=== PATIENT | male | born 1950 | race Two or more races ===

== ENCOUNTER 2025-02-24 23:37 | Inpatient (IN) | payer MEDICARE, OTHER ==
[~2025-02-24] VITALS: Ht 172.7 cm; Wt 73.5 kg
[2025-02-25] VITALS (7 sets, daily range): BP systolic 130–144; BP diastolic 61–76; TEMP 97.5–98.1; O2SAT 99–100
[2025-02-25 00:29] LABS: CARBON DIOXIDE 16 mmol/L (21-32); CHLORIDE 105 mmol/L (98-107); CREATININE 5.1 mg/dL (0.6-1.3); GLUCOSE 93 mg/dL (74-106); SODIUM SERUM 131 mmol/L (136-145); UREA NITROGEN, BLOOD 56 mg/dL (7-18)
[2025-02-25 00:30] LABS: BASOPHILS % (AUTO) 0.6 % (0.0-2.0); EOSINOPHILS # (AUTO) 0.1 K/uL (0.0-0.7); EOSINOPHILS % (AUTO) 0.8 % (0.0-6.0); HEMATOCRIT 24 % (39-51); HEMOGLOBIN 7.7 g/dL (13.5-17.5); LYMPHOCYTES # (AUTO) 1.2 K/uL (0.8-4.8); LYMPHOCYTES % (AUTO) 19.4 % (20.0-44.0); MEAN CORPUSCULAR HEMOGLOBIN 31 PG (26.0-33.0); MEAN CORPUSCULAR HGB CONC 32 g/dl (31.0-36.0); MEAN CORPUSCULAR VOLUME 99 fL (80-96); MONOCYTES # (AUTO) 0.6 K/uL (0.1-1.30); NEUTROPHILS # (AUTO) 4.5 K/uL (1.8-8.9); NEUTROPHILS % (AUTO) 70.2 % (43.0-81.0); PLATELET COUNT (AUTO) 242 K/uL (150-450); RED BLOOD CELL COUNT(AUTO) 2.46 MIL/uL (4.5-6.0); RED CELL DISTRIBUTION WIDTH 20.2 % (11.5-15.0); WHITE BLOOD COUNT (AUTO) 6.3 K/uL (4.3-11.0)
[2025-02-25 00:33] LABS: CALCIUM, SERUM 5.7 mg/dL (8.5-10.1); POTASSIUM 7.2 mmol/L (3.5-5.1)
[2025-02-25 00:35] LABS: APPEARANCE,URINE CLOUDY (CLEAR)
[2025-02-25 00:36] LABS: COLOR,URINE RED (YELLOW)
[2025-02-25 00:43] LABS: ALANINE AMINOTRANSFERASE 6 U/L (12-78); ALBUMIN 2.6 g/dL (3.4-5.0); ALKALINE PHOSPHATASE 321 U/L (46-116); ASPARTATE AMINOTRANSFERASE 28 U/L (15-37); BILIRUBIN,DIRECT 0.2 mg/dL (0.0-0.2); BILIRUBIN,TOTAL 0.5 mg/dL (0.2-1.0); NT-PRO BNP 10344 pg/mL (0-125); TOTAL PROTEIN, SERUM 6.5 g/dL (6.4-8.2)
[2025-02-25] MEDS ORDERED: DEXTROSE 50%-WATER 50 ML DISP.SYRIN ONE (00:49)
[2025-02-25] MEDS ORDERED: SODIUM POLYSTYRENE SULFONATE 15 G/60 ML BOTTLE ONE (00:49)
[2025-02-25] MEDS ORDERED: INSULIN REGULAR, HUMAN 100 UNIT/ML 10 ML VIAL ONE (00:49)
[2025-02-25] MEDS ORDERED: CALCIUM CHLORIDE 1,000 MG/10 ML DISP.SYRIN ONE (00:49)
[2025-02-25] MEDS ORDERED: SODIUM BICARBONATE SYR 50 MEQ/50 ML DISP.SYRIN ONE ×2 (00:49→00:59)
[2025-02-25 00:58] LABS: RBC,URINE TOO NUMEROUS TO COUN /HPF (0-2)
[2025-02-25] MEDS: ALBUTEROL FS 2.5 MG/3 ML VIAL.NEB NEB ONE (00:58)
[2025-02-25 01:00] LABS: SQUAMOUS EPITHELIAL CELL,UR Moderate /HPF (None Seen)
[2025-02-25 01:01] LABS: INR 1.12 (0.91-1.10); PARTIAL THROMBOPLASTIN TIME 35.9 SEC (24.3-34.3); PROTHROMBIN TIME 11.8 SECS (9.2-11.1)
[2025-02-25 01:03] LABS: BACTERIA,URINE Few /HPF (None Seen)
[2025-02-25] MEDS ORDERED: ALBUTEROL FS 2.5 MG/3 ML VIAL.NEB ONE (01:09)
[2025-02-25] MEDS: CALCIUM CHLORIDE 1,000 MG/10 ML DISP.SYRIN IV ONE (01:21)
[2025-02-25] MEDS: DEXTROSE 50%-WATER 50 ML DISP.SYRIN IV ONE (01:21)
[2025-02-25] MEDS: IV NS 0.9% 1,000 ML BAG IV ONE (01:23)
[2025-02-25] MEDS: SODIUM BICARBONATE SYR 100 MEQ in IV D5W 1,000 ML IV ONE (01:23)
[2025-02-25] MEDS: INSULIN REGULAR, HUMAN 100 UNIT/ML 10 ML VIAL IV ONE (01:23)
[2025-02-25] MEDS: SODIUM POLYSTYRENE SULFONATE 15 G/60 ML BOTTLE PO ONE (01:24)
[2025-02-25] MEDS ORDERED: Z GUARD REMEDY 4 OZ OINT TP PRN (03:00)
[2025-02-25] MEDS ORDERED: ONDANSETRON HCL/PF 4 MG/2 ML VIAL IVP PRN (03:00)
[2025-02-25] MEDS ORDERED: ACETAMINOPHEN 325 MG TABLET ONE (03:20)
[2025-02-25] MEDS: ACETAMINOPHEN 325 MG TABLET PO PRN (03:23)
[2025-02-25] MEDS: HYDROCODONE/APAP 5/325MG TABLET PO PRN (05:36)
[2025-02-25] MEDS: PANTOPRAZOLE 40 MG TABLET.DR PO SCH (07:59)
[2025-02-25] MEDS ORDERED: PANT40TA2 PO (08:28)
[2025-02-25] MEDS ORDERED: CRAN400C PO (08:28)
[2025-02-25] MEDS ORDERED: LACT1TAB13 PO (08:28)
[2025-02-25] MEDS ORDERED: ASCO-352 PO (08:28)
[2025-02-25] MEDS ORDERED: ACET-868 PO (08:28)
[2025-02-25] MEDS ORDERED: GABA300C PO (08:28)
[2025-02-25] MEDS ORDERED: SENN8.6T19 PO (08:28)
[2025-02-25] MEDS ORDERED: POLY17PO4 PO (08:28)
[2025-02-25] MEDS ORDERED: ONDA-97 PO (08:28)
[2025-02-25] MEDS ORDERED: MIDO10TA PO (08:28)
[2025-02-25] MEDS ORDERED: ATOR20TA PO (08:28)
[2025-02-25] MEDS ORDERED: BICA50TA49 PO (08:28)
[2025-02-25] MEDS ORDERED: LEVO150T8 PO (08:28)
[2025-02-25] MEDS ORDERED: DICL100G26 TP (08:28)
[2025-02-25] MEDS ORDERED: DARO300T PO (08:28)
[2025-02-25] MEDS ORDERED: FOLI0.4T6 PO (08:28)
[2025-02-25] MEDS ORDERED: HYDR-4303 PO (08:28)
[2025-02-25] MEDS ORDERED: FERR325T28 PO (08:28)
[2025-02-25] MEDS ORDERED: MULT-447 PO (08:28)
[2025-02-25] MEDS ORDERED: AMINO ACID PO (08:28)
[2025-02-25] MEDS ORDERED: METH-649 PO (08:28)
[2025-02-25] MEDS ORDERED: MELA5TAB PO (08:28)
[2025-02-25] MEDS ORDERED: LIDO30AD10 TP (08:28)
[2025-02-25] MEDS: FUROSEMIDE 40 MG/4 ML VIAL IV SCH (08:29)
[2025-02-25] MEDS: Sodium Bicarbonate 100 MEQ in IV 1/2NS 1000 ML 1,000 ML IV SCH (11:41)
[2025-02-25 11:58] LABS: APPEARANCE,URINE TURBID (CLEAR); COLOR,URINE RED (YELLOW)
[2025-02-25 11:59] LABS: BACTERIA,URINE Rare /HPF (None Seen); RBC,URINE TOO NUMEROUS TO COUN /HPF (0-2); SQUAMOUS EPITHELIAL CELL,UR None Seen /HPF (None Seen); WBC,URINE 0-2 /HPF (0-3)
[2025-02-25 12:09] LABS: CREATININE, URINE < 13.0 MG/DL (30.0-125.0); URINE SODIUM, RANDOM 84 mmol/l (40-220); URINE TOTAL PROTEIN 592.4 mg/dL (0-11.9)
[2025-02-25 12:54] LABS: BASOPHILS % (AUTO) 0.7 % (0.0-2.0); EOSINOPHILS % (AUTO) 0.4 % (0.0-6.0); HEMATOCRIT 22 % (39-51); HEMOGLOBIN 7.4 g/dL (13.5-17.5); LYMPHOCYTES # (AUTO) 0.7 K/uL (0.8-4.8); LYMPHOCYTES % (AUTO) 11.7 % (20.0-44.0); MEAN CORPUSCULAR HEMOGLOBIN 32 PG (26.0-33.0); MEAN CORPUSCULAR HGB CONC 33 g/dl (31.0-36.0); MEAN CORPUSCULAR VOLUME 97 fL (80-96); MONOCYTES # (AUTO) 0.4 K/uL (0.1-1.30); MONOCYTES % (AUTO) 6.9 % (2.0-12.0); NEUTROPHILS # (AUTO) 5.1 K/uL (1.8-8.9); NEUTROPHILS % (AUTO) 80.3 % (43.0-81.0); PLATELET COUNT (AUTO) 240 K/uL (150-450); RED BLOOD CELL COUNT(AUTO) 2.31 MIL/uL (4.5-6.0); RED CELL DISTRIBUTION WIDTH 20.2 % (11.5-15.0); WHITE BLOOD COUNT (AUTO) 6.3 K/uL (4.3-11.0)
[2025-02-25 13:12] LABS: ALBUMIN 2.5 g/dL (3.4-5.0); BILIRUBIN,TOTAL 0.5 mg/dL (0.2-1.0); CREATININE 5.4 mg/dL (0.6-1.3); MAGNESIUM 1.5 mg/dL (1.8-2.4); PHOSPHORUS 5.6 mg/dL (2.5-4.9); TOTAL PROTEIN, SERUM 6.2 g/dL (6.4-8.2)
[2025-02-25 13:34] LABS: CALCIUM, SERUM 5.9 mg/dL (8.5-10.1); POTASSIUM 6.3 mmol/L (3.5-5.1)
[2025-02-25 13:35] LABS: EOSINOPHIL,URINE Rare
[2025-02-25] MEDS: MORPHINE SULFATE INJ 2 MG/ML DISP.SYRIN IV PRN (15:18)
[2025-02-26] VITALS: BP 122/67; TEMP 98.2; O2SAT 95
[2025-02-26 04:00] VITALS: BP 146/59; TEMP 97.9; O2SAT 100
[2025-02-26 07:07] LABS: BASOPHILS # (AUTO) 0.1 K/uL (0.0-0.2); BASOPHILS % (AUTO) 1.1 % (0.0-2.0); EOSINOPHILS # (AUTO) 0.1 K/uL (0.0-0.7); EOSINOPHILS % (AUTO) 1.5 % (0.0-6.0); HEMATOCRIT 21 % (39-51); HEMOGLOBIN 7.1 g/dL (13.5-17.5); LYMPHOCYTES # (AUTO) 1.1 K/uL (0.8-4.8); LYMPHOCYTES % (AUTO) 18.2 % (20.0-44.0); MEAN CORPUSCULAR HEMOGLOBIN 32 PG (26.0-33.0); MEAN CORPUSCULAR HGB CONC 33 g/dl (31.0-36.0); MEAN CORPUSCULAR VOLUME 97 fL (80-96); MONOCYTES # (AUTO) 0.5 K/uL (0.1-1.30); NEUTROPHILS # (AUTO) 4.1 K/uL (1.8-8.9); NEUTROPHILS % (AUTO) 70.2 % (43.0-81.0); PLATELET COUNT (AUTO) 220 K/uL (150-450); RED BLOOD CELL COUNT(AUTO) 2.19 MIL/uL (4.5-6.0); RED CELL DISTRIBUTION WIDTH 20.2 % (11.5-15.0); WHITE BLOOD COUNT (AUTO) 5.8 K/uL (4.3-11.0)
[2025-02-26 07:28] LABS: ALBUMIN 2.4 g/dL (3.4-5.0); BILIRUBIN,TOTAL 0.5 mg/dL (0.2-1.0); CALCIUM, SERUM 6.4 mg/dL (8.5-10.1); MAGNESIUM 1.6 mg/dL (1.8-2.4); PHOSPHORUS 4.1 mg/dL (2.5-4.9); POTASSIUM 4.9 mmol/L (3.5-5.1); TOTAL PROTEIN, SERUM 6.1 g/dL (6.4-8.2)
[2025-02-26 08:00] VITALS: BP 149/70; TEMP 97.9; O2SAT 100
[2025-02-26] MEDS: MAGNESIUM OXIDE 400 MG TABLET PO ONE (10:57)
[2025-02-26 12:00] VITALS: BP 139/69; TEMP 97.9; O2SAT 100
[2025-02-26 16:00] VITALS: BP 144/60; TEMP 98.1; O2SAT 100
[2025-02-26 20:00] VITALS: BP 121/52; TEMP 98.6; O2SAT 100
[2025-02-27] VITALS (7 sets, daily range): BP systolic 127–158; BP diastolic 60–72; TEMP 98.1–99.1; O2SAT 98–100
[2025-02-27 06:53] LABS: BASOPHILS # (AUTO) 0.1 K/uL (0.0-0.2); BASOPHILS % (AUTO) 0.8 % (0.0-2.0); EOSINOPHILS # (AUTO) 0.1 K/uL (0.0-0.7); EOSINOPHILS % (AUTO) 1.8 % (0.0-6.0); HEMATOCRIT 23 % (39-51); HEMOGLOBIN 7.7 g/dL (13.5-17.5); LYMPHOCYTES # (AUTO) 1.5 K/uL (0.8-4.8); LYMPHOCYTES % (AUTO) 22.7 % (20.0-44.0); MEAN CORPUSCULAR HEMOGLOBIN 33 PG (26.0-33.0); MEAN CORPUSCULAR HGB CONC 34 g/dl (31.0-36.0); MEAN CORPUSCULAR VOLUME 98 fL (80-96); MONOCYTES # (AUTO) 0.8 K/uL (0.1-1.30); MONOCYTES % (AUTO) 11.9 % (2.0-12.0); NEUTROPHILS # (AUTO) 4.2 K/uL (1.8-8.9); NEUTROPHILS % (AUTO) 62.8 % (43.0-81.0); PLATELET COUNT (AUTO) 209 K/uL (150-450); RED BLOOD CELL COUNT(AUTO) 2.37 MIL/uL (4.5-6.0); RED CELL DISTRIBUTION WIDTH 19.9 % (11.5-15.0); WHITE BLOOD COUNT (AUTO) 6.7 K/uL (4.3-11.0)
[2025-02-27 07:14] LABS: ALBUMIN 2.6 g/dL (3.4-5.0); BILIRUBIN,TOTAL 0.6 mg/dL (0.2-1.0); CALCIUM, SERUM 6.6 mg/dL (8.5-10.1); CREATININE 3.7 mg/dL (0.6-1.3); MAGNESIUM 1.7 mg/dL (1.8-2.4); PHOSPHORUS 3.6 mg/dL (2.5-4.9); POTASSIUM 4.9 mmol/L (3.5-5.1); TOTAL PROTEIN, SERUM 6.5 g/dL (6.4-8.2)
[2025-02-27] MEDS ORDERED: DAROLUTAMIDE 600 MG PO SCH (11:30)
[2025-02-27] MEDS: MIDODRINE HCL (5MG) 5 MG TABLET PO SCH (12:01)
[2025-02-27] MEDS: FERROUS SULFATE (325 MG) 325 MG/TAB TABLET PO SCH (12:05)
[2025-02-27] MEDS: BICALUTAMIDE 50 MG TABLET PO SCH (12:05)
[2025-02-27] MEDS: LACTOBACILLUS RHAMNOSUS GG 1 EACH CAP.SPRINK PO SCH (12:05)
[2025-02-27] MEDS: GABAPENTIN 300 MG CAPSULE PO SCH (12:05)
[2025-02-27] MEDS: Magnesium 1GM/D5W 100ML PREMIX 100 ML IV SCH (12:05)
[2025-02-27] MEDS: PANTOPRAZOLE 40 MG TABLET.DR PO SCH (12:05)
[2025-02-27] MEDS: LIDOCAINE 5% (PATCH) 1 EA PATCH TP SCH (12:05)
[2025-02-27] MEDS: FOLIC ACID 1 MG TABLET PO SCH (12:05)
[2025-02-27] MEDS: MULTIVIT W/MINERALS 1 TAB TABLET PO SCH (12:05)
[2025-02-27] MEDS: LEVOTHYROXINE SODIUM 75 MCG TABLET PO SCH (12:05)
[2025-02-27 18:50] LABS: HEMOGLOBIN 7.2 g/dL (13.5-17.5)
[2025-02-27] MEDS: ATORVASTATIN 10 MG TABLET PO SCH (21:43)
[2025-02-28] VITALS (11 sets, daily range): BP systolic 131–166; BP diastolic 56–69; TEMP 97.3–99.9; O2SAT 95–100
[2025-02-28] MEDS: ASCORBIC ACID 500 MG TABLET PO SCH (08:09)
[2025-02-28 11:54] LABS: BASOPHILS % (AUTO) 0.5 % (0.0-2.0); EOSINOPHILS % (AUTO) 0.5 % (0.0-6.0); LYMPHOCYTES # (AUTO) 1.1 K/uL (0.8-4.8); LYMPHOCYTES % (AUTO) 12.8 % (20.0-44.0); MEAN CORPUSCULAR HEMOGLOBIN 32 PG (26.0-33.0); MEAN CORPUSCULAR HGB CONC 34 g/dl (31.0-36.0); MEAN CORPUSCULAR VOLUME 97 fL (80-96); MONOCYTES # (AUTO) 0.9 K/uL (0.1-1.30); MONOCYTES % (AUTO) 10.5 % (2.0-12.0); NEUTROPHILS # (AUTO) 6.7 K/uL (1.8-8.9); NEUTROPHILS % (AUTO) 75.7 % (43.0-81.0); PLATELET COUNT (AUTO) 189 K/uL (150-450); RED BLOOD CELL COUNT(AUTO) 2.11 MIL/uL (4.5-6.0); RED CELL DISTRIBUTION WIDTH 20.1 % (11.5-15.0); WHITE BLOOD COUNT (AUTO) 8.9 K/uL (4.3-11.0)
[2025-02-28 11:59] LABS: HEMATOCRIT 20 % (39-51)
[2025-02-28 12:03] LABS: HEMOGLOBIN 6.8 g/dL (13.5-17.5)
[2025-02-28 12:06] LABS: *SPE A/G RATIO 0.9 (0.7-1.7); *SPE ALBUMIN 2.6 g/dL (2.9-4.4); *SPE ALPHA-1-GLOBULIN 0.4 g/dL (0.0-0.4); *SPE ALPHA-2-GLOBULIN 0.7 g/dL (0.4-1.0); *SPE BETA GLOBULIN 0.9 g/dL (0.7-1.3); *SPE GLOBULIN, TOTAL 2.8 g/dL (2.2-3.9); *SPE M-SPIKE Not Observed g/dL (Not Observed); *SPE PROTEIN TOTAL 5.4 g/dL (6.0-8.5); *SPEGAMMA GLOBULIN 0.9 g/dL (0.4-1.8)
[2025-02-28 12:07] LABS: CALCIUM, SERUM 6.6 mg/dL (8.5-10.1); CREATININE 3.8 mg/dL (0.6-1.3); MAGNESIUM 1.8 mg/dL (1.8-2.4); PHOSPHORUS 3.5 mg/dL (2.5-4.9); POTASSIUM 4.5 mmol/L (3.5-5.1)
[2025-02-28 15:39] LABS: EOSINOPHILS % (MANUAL) 1 % (0-4); LYMPHOCYTES % (MANUAL) 13 % (16-48); MONOCYTES % (MANUAL) 9 % (0-11.0); NEUTROPHILS % (MANUAL) 77 (42-76)
[2025-02-28 15:40] LABS: HYPOCHROMASIA 1+; PLATELET ESTIMATE ADEQUATE
[2025-02-28 15:41] LABS: ANISOCYTOSIS 1+
[2025-02-28] MEDS: ZOLPIDEM TARTRATE 5 MG TABLET PO PRN (21:22)
[2025-03-01] VITALS: BP 130/55; TEMP 100; O2SAT 96
[2025-03-01 01:06] LABS: PTH, INTACT 388 pg/mL (15-65)
[2025-03-01 02:09] LABS: HBSAG SCREEN Negative (Negative); HEPATITIS A AB, IgM Negative (Negative); HEPATITIS B CORE AB, IgM Negative (Negative)
[2025-03-01 02:09] LABS: HEPATITIS B SURFACE AB (QUAL) Non Reactive (.)
[2025-03-01 04:31] VITALS: BP 140/60; TEMP 98.8; O2SAT 97
[2025-03-01 07:14] LABS: BASOPHILS % (AUTO) 0.3 % (0.0-2.0); EOSINOPHILS # (AUTO) 0.2 K/uL (0.0-0.7); EOSINOPHILS % (AUTO) 1.1 % (0.0-6.0); HEMATOCRIT 29 % (39-51); HEMOGLOBIN 9.3 g/dL (13.5-17.5); LYMPHOCYTES % (AUTO) 13.3 % (20.0-44.0); MEAN CORPUSCULAR HEMOGLOBIN 32 PG (26.0-33.0); MEAN CORPUSCULAR HGB CONC 33 g/dl (31.0-36.0); MEAN CORPUSCULAR VOLUME 100 fL (80-96); MONOCYTES # (AUTO) 1.1 K/uL (0.1-1.30); MONOCYTES % (AUTO) 6.9 % (2.0-12.0); NEUTROPHILS # (AUTO) 11.9 K/uL (1.8-8.9); NEUTROPHILS % (AUTO) 78.4 % (43.0-81.0); PLATELET COUNT (AUTO) 215 K/uL (150-450); RED BLOOD CELL COUNT(AUTO) 2.86 MIL/uL (4.5-6.0); RED CELL DISTRIBUTION WIDTH 20.3 % (11.5-15.0); WHITE BLOOD COUNT (AUTO) 15.2 K/uL (4.3-11.0)
[2025-03-01 07:38] LABS: ALANINE AMINOTRANSFERASE < 6 U/L (12-78); ALBUMIN 2.5 g/dL (3.4-5.0); ALKALINE PHOSPHATASE 277 U/L (46-116); ASPARTATE AMINOTRANSFERASE 21 U/L (15-37); BILIRUBIN,TOTAL 1.1 mg/dL (0.2-1.0); CALCIUM, SERUM 6.9 mg/dL (8.5-10.1); CARBON DIOXIDE 25 mmol/L (21-32); CHLORIDE 99 mmol/L (98-107); CREATININE 3.2 mg/dL (0.6-1.3); GLUCOSE 89 mg/dL (74-106); PHOSPHORUS 3.1 mg/dL (2.5-4.9); POTASSIUM 4.4 mmol/L (3.5-5.1); SODIUM SERUM 135 mmol/L (136-145); TOTAL PROTEIN, SERUM 6.8 g/dL (6.4-8.2); UREA NITROGEN, BLOOD 18 mg/dL (7-18)
[2025-03-01 08:00] VITALS: BP_SYST 125; BP_SYST 126; BP_DIAS 57; BP_DIAS 61; TEMP 99.2; O2SAT 100; O2SAT 96
[2025-03-01 12:00] VITALS: BP 126/61; TEMP 97; O2SAT 100
[2025-03-01 16:00] VITALS: BP 124/72; TEMP 98.2; O2SAT 100
[2025-03-01 20:00] VITALS: BP 155/64; TEMP 102.4; O2SAT 95
[2025-03-02] VITALS: BP 112/50; TEMP 99.3; O2SAT 100
[2025-03-02 04:00] VITALS: BP 149/49; TEMP 99.1; O2SAT 100
[2025-03-02 07:35] LABS: BASOPHILS % (AUTO) 0.4 % (0.0-2.0); EOSINOPHILS % (AUTO) 0.4 % (0.0-6.0); HEMATOCRIT 22 % (39-51); HEMOGLOBIN 7.4 g/dL (13.5-17.5); LYMPHOCYTES # (AUTO) 0.8 K/uL (0.8-4.8); LYMPHOCYTES % (AUTO) 6.5 % (20.0-44.0); MEAN CORPUSCULAR HEMOGLOBIN 32 PG (26.0-33.0); MEAN CORPUSCULAR HGB CONC 34 g/dl (31.0-36.0); MEAN CORPUSCULAR VOLUME 97 fL (80-96); MONOCYTES % (AUTO) 8.4 % (2.0-12.0); NEUTROPHILS # (AUTO) 10.1 K/uL (1.8-8.9); NEUTROPHILS % (AUTO) 84.3 % (43.0-81.0); PLATELET COUNT (AUTO) 195 K/uL (150-450); RED BLOOD CELL COUNT(AUTO) 2.29 MIL/uL (4.5-6.0); RED CELL DISTRIBUTION WIDTH 20.1 % (11.5-15.0); WHITE BLOOD COUNT (AUTO) 11.9 K/uL (4.3-11.0)
[2025-03-02 07:37] LABS: ALBUMIN 2.1 g/dL (3.4-5.0); BILIRUBIN,TOTAL 0.8 mg/dL (0.2-1.0); CALCIUM, SERUM 6.2 mg/dL (8.5-10.1); CREATININE 4.5 mg/dL (0.6-1.3); MAGNESIUM 1.7 mg/dL (1.8-2.4); PHOSPHORUS 3.3 mg/dL (2.5-4.9)
[2025-03-02 08:00] VITALS: BP 112/51; TEMP 99.9; O2SAT 97
[2025-03-02] MEDS: MAGNESIUM OXIDE 400 MG TABLET PO SCH (11:22)
[2025-03-02 12:00] VITALS: BP 115/55; TEMP 99.8; O2SAT 96
[2025-03-02 16:00] VITALS: BP 133/50; TEMP 98.2; O2SAT 96
[2025-03-02 20:00] VITALS: BP 135/54; TEMP 99.7; O2SAT 97
[2025-03-03] VITALS (12 sets, daily range): BP systolic 102–157; BP diastolic 45–72; TEMP 97.7–102.9; O2SAT 96–100
[2025-03-03] MEDS: HYDROCODONE/APAP 5/325MG TABLET PO PRN (02:15)
[2025-03-03 07:01] LABS: EOSINOPHILS # (AUTO) 0.1 K/uL (0.0-0.7); EOSINOPHILS % (AUTO) 1.7 % (0.0-6.0); MONOCYTES # (AUTO) 0.7 K/uL (0.1-1.30); MONOCYTES % (AUTO) 11.3 % (2.0-12.0)
[2025-03-03 07:08] LABS: BASOPHILS % (AUTO) 0.4 % (0.0-2.0); LYMPHOCYTES # (AUTO) 0.5 K/uL (0.8-4.8); LYMPHOCYTES % (AUTO) 9.1 % (20.0-44.0); MEAN CORPUSCULAR HEMOGLOBIN 32 PG (26.0-33.0); MEAN CORPUSCULAR HGB CONC 33 g/dl (31.0-36.0); MEAN CORPUSCULAR VOLUME 96 fL (80-96); NEUTROPHILS # (AUTO) 4.7 K/uL (1.8-8.9); NEUTROPHILS % (AUTO) 77.5 % (43.0-81.0); PLATELET COUNT (AUTO) 166 K/uL (150-450); RED BLOOD CELL COUNT(AUTO) 2.03 MIL/uL (4.5-6.0); RED CELL DISTRIBUTION WIDTH 19.9 % (11.5-15.0)
[2025-03-03 07:10] LABS: HEMATOCRIT 20 % (39-51)
[2025-03-03 07:14] LABS: HEMOGLOBIN 6.5 g/dL (13.5-17.5)
[2025-03-03 07:20] LABS: ALBUMIN 2.1 g/dL (3.4-5.0); BILIRUBIN,TOTAL 0.7 mg/dL (0.2-1.0); CALCIUM, SERUM 6.5 mg/dL (8.5-10.1); CREATININE 3.7 mg/dL (0.6-1.3); MAGNESIUM 1.7 mg/dL (1.8-2.4); PHOSPHORUS 2.6 mg/dL (2.5-4.9); POTASSIUM 3.7 mmol/L (3.5-5.1); TOTAL PROTEIN, SERUM 5.5 g/dL (6.4-8.2)
[2025-03-03 09:31] LABS: LYMPHOCYTES % (MANUAL) 9 % (16-48); NEUTROPHILS % (MANUAL) 81 (42-76)
[2025-03-03 09:32] LABS: EOSINOPHILS % (MANUAL) 3 % (0-4); MONOCYTES % (MANUAL) 7 % (0-11.0); PLATELET ESTIMATE ADEQUATE
[2025-03-04] VITALS: BP 144/65; TEMP 97.8; O2SAT 100
[2025-03-04 04:00] VITALS: BP 125/57; TEMP 102; O2SAT 96
[2025-03-04 06:38] LABS: BASOPHILS % (AUTO) 0.4 % (0.0-2.0); EOSINOPHILS # (AUTO) 0.1 K/uL (0.0-0.7); EOSINOPHILS % (AUTO) 0.7 % (0.0-6.0); HEMATOCRIT 25 % (39-51); HEMOGLOBIN 8.4 g/dL (13.5-17.5); LYMPHOCYTES # (AUTO) 0.5 K/uL (0.8-4.8); LYMPHOCYTES % (AUTO) 5.7 % (20.0-44.0); MEAN CORPUSCULAR HEMOGLOBIN 32 PG (26.0-33.0); MEAN CORPUSCULAR HGB CONC 34 g/dl (31.0-36.0); MEAN CORPUSCULAR VOLUME 94 fL (80-96); MONOCYTES % (AUTO) 10.8 % (2.0-12.0); NEUTROPHILS # (AUTO) 7.3 K/uL (1.8-8.9); NEUTROPHILS % (AUTO) 82.4 % (43.0-81.0); PLATELET COUNT (AUTO) 214 K/uL (150-450); RED BLOOD CELL COUNT(AUTO) 2.61 MIL/uL (4.5-6.0); RED CELL DISTRIBUTION WIDTH 19.1 % (11.5-15.0); WHITE BLOOD COUNT (AUTO) 8.9 K/uL (4.3-11.0)
[2025-03-04 06:52] LABS: ALBUMIN 2.3 g/dL (3.4-5.0); BILIRUBIN,TOTAL 0.9 mg/dL (0.2-1.0); CALCIUM, SERUM 6.5 mg/dL (8.5-10.1); CREATININE 4.3 mg/dL (0.6-1.3); MAGNESIUM 1.7 mg/dL (1.8-2.4); PHOSPHORUS 2.1 mg/dL (2.5-4.9); POTASSIUM 4.1 mmol/L (3.5-5.1); TOTAL PROTEIN, SERUM 6.1 g/dL (6.4-8.2)
[2025-03-04 07:12] LABS: HEPATITIS B SURFACE AB (QUAL) Non Reactive (.)
[2025-03-04 08:00] VITALS: BP 111/53; TEMP 100.9; O2SAT 96
[2025-03-04 08:07] LABS: COMPLEMENT C3, SERUM 119 mg/dL (82-167); COMPLEMENT C4, SERUM 15 mg/dL (12-38)
[2025-03-04 10:09] LABS: *ANA ANTI-CENTROMERE B AB <0.2 AI (0.0-0.9); *ANA ANTI-DNA(DS) AB, QN <1 IU/mL (0-9); *ANA ANTI-JO-1 <0.2 AI (0.0-0.9); *ANA ANTICHROMATIN ANTIBODY 0.2 AI (0.0-0.9); *ANA RNP ANTIBODIES 3.4 AI (0.0-0.9); *ANA SJOGREN'S ANTI-SS-A 0.6 AI (0.0-0.9); *ANA SJOGREN'S ANTI-SS-B <0.2 AI (0.0-0.9); *ANAANTI-SCLERODERMA-70 AB <0.2 AI (0.0-0.9); *ANASMITH AB <0.2 AI (0.0-0.9)
[2025-03-04 12:00] VITALS: BP 103/51; TEMP 98.2; O2SAT 97
[2025-03-04 16:00] VITALS: BP 141/52; TEMP 98.4; O2SAT 99
[2025-03-04] MEDS: CEFEPIME 1 GM in IV D5W 50 ML IV SCH (16:05)
[2025-03-04] MEDS: VANCOMYCIN 1 GM in IV D5W 250ml IV ONE (16:42)
[2025-03-04 20:00] VITALS: BP 134/55; TEMP 102.2; O2SAT 99
[2025-03-04 20:33] LABS: APPEARANCE,URINE TURBID (CLEAR); BLOOD, URINE 3+ Ery/uL (NEGATIVE); COLOR,URINE RED (YELLOW); NITRITE, URINE POSITIVE (NEGATIVE); PROTEIN,URINE 3+ mg/dl (NEGATIVE)
[2025-03-04 20:47] LABS: BILIRUBIN,URINE NEGATIVE (NEGATIVE); KETONES,URINE NEGATIVE (NEGATIVE); UGLUCOSE NEGATIVE (NEGATIVE)
[2025-03-04 20:48] LABS: UROBILINOGEN,URINE 0.2 EU/dL (0.2)
[2025-03-04 21:14] LABS: RBC,URINE TOO NUMEROUS TO COUN /HPF (0-2)
[2025-03-04 21:17] LABS: LEUKOCYTE ESTERASE ,URINE 2+ (NEGATIVE)
[2025-03-04 21:21] LABS: ADD URINE CULTURE YES; BACTERIA,URINE Rare /HPF (None Seen)
[2025-03-04 21:22] LABS: SQUAMOUS EPITHELIAL CELL,UR 0-2 /HPF (None Seen)
[2025-03-05] VITALS: BP 134/55; TEMP 102.2; O2SAT 99
[2025-03-05 04:00] VITALS: BP 125/59; TEMP 97.3; O2SAT 100
[2025-03-05 06:48] LABS: BASOPHILS % (AUTO) 0.5 % (0.0-2.0); EOSINOPHILS # (AUTO) 0.1 K/uL (0.0-0.7); HEMATOCRIT 23 % (39-51); HEMOGLOBIN 7.8 g/dL (13.5-17.5); LYMPHOCYTES % (AUTO) 9.6 % (20.0-44.0); MEAN CORPUSCULAR HEMOGLOBIN 33 PG (26.0-33.0); MEAN CORPUSCULAR HGB CONC 34 g/dl (31.0-36.0); MEAN CORPUSCULAR VOLUME 97 fL (80-96); MONOCYTES # (AUTO) 1.1 K/uL (0.1-1.30); MONOCYTES % (AUTO) 11.5 % (2.0-12.0); NEUTROPHILS # (AUTO) 7.6 K/uL (1.8-8.9); NEUTROPHILS % (AUTO) 77.4 % (43.0-81.0); PLATELET COUNT (AUTO) 204 K/uL (150-450); RED BLOOD CELL COUNT(AUTO) 2.41 MIL/uL (4.5-6.0); RED CELL DISTRIBUTION WIDTH 19.9 % (11.5-15.0); WHITE BLOOD COUNT (AUTO) 9.9 K/uL (4.3-11.0)
[2025-03-05 07:08] LABS: BILIRUBIN,TOTAL 0.8 mg/dL (0.2-1.0); CALCIUM, SERUM 6.2 mg/dL (8.5-10.1); MAGNESIUM 1.7 mg/dL (1.8-2.4); PHOSPHORUS 2.2 mg/dL (2.5-4.9); POTASSIUM 4.3 mmol/L (3.5-5.1); TOTAL PROTEIN, SERUM 5.6 g/dL (6.4-8.2)
[2025-03-05 08:00] VITALS: BP 126/83; TEMP 98.4; O2SAT 100
[2025-03-05 08:49] LABS: ANISOCYTOSIS 1+; EOSINOPHILS % (MANUAL) 1 % (0-4); LYMPHOCYTES % (MANUAL) 3 % (16-48); MONOCYTES % (MANUAL) 18 % (0-11.0); NEUTROPHILS % (MANUAL) 78 (42-76); PLATELET ESTIMATE ADEQUATE
[2025-03-05 12:00] VITALS: BP 133/66; TEMP 98.4; O2SAT 100
[2025-03-05 14:44] LABS: HIV-1 p24 ANTIGEN NON REACTIVE (NONREACTIVE); HIV-1/2 ANTIBODY NON REACTIVE (NONREACTIVE)
[2025-03-05 16:00] VITALS: BP 120/70; TEMP 99.3; O2SAT 99
[2025-03-05 20:00] VITALS: BP 151/61; TEMP 98.6; O2SAT 95
[2025-03-05] MEDS: VANCOMYCIN POST DIALYSIS 500MG IV PRN (20:30)
[2025-03-06 00:08] VITALS: BP 137/63; TEMP 99.2; O2SAT 96
[2025-03-06 04:00] VITALS: BP 142/67; TEMP 99.9; O2SAT 96
[2025-03-06 05:24] VITALS: TEMP 98.8
[2025-03-06 07:07] LABS: BASOPHILS # (AUTO) 0.1 K/uL (0.0-0.2); BASOPHILS % (AUTO) 0.5 % (0.0-2.0); EOSINOPHILS # (AUTO) 0.2 K/uL (0.0-0.7); EOSINOPHILS % (AUTO) 1.5 % (0.0-6.0); HEMATOCRIT 24 % (39-51); HEMOGLOBIN 7.9 g/dL (13.5-17.5); LYMPHOCYTES # (AUTO) 1.1 K/uL (0.8-4.8); LYMPHOCYTES % (AUTO) 10.1 % (20.0-44.0); MEAN CORPUSCULAR HEMOGLOBIN 32 PG (26.0-33.0); MEAN CORPUSCULAR HGB CONC 34 g/dl (31.0-36.0); MEAN CORPUSCULAR VOLUME 94 fL (80-96); MONOCYTES # (AUTO) 1.3 K/uL (0.1-1.30); MONOCYTES % (AUTO) 12.3 % (2.0-12.0); NEUTROPHILS # (AUTO) 7.9 K/uL (1.8-8.9); NEUTROPHILS % (AUTO) 75.6 % (43.0-81.0); PLATELET COUNT (AUTO) 230 K/uL (150-450); RED BLOOD CELL COUNT(AUTO) 2.51 MIL/uL (4.5-6.0); RED CELL DISTRIBUTION WIDTH 18.7 % (11.5-15.0); WHITE BLOOD COUNT (AUTO) 10.5 K/uL (4.3-11.0)
[2025-03-06 07:20] LABS: ALBUMIN 2.1 g/dL (3.4-5.0); BILIRUBIN,TOTAL 0.9 mg/dL (0.2-1.0); CALCIUM, SERUM 6.6 mg/dL (8.5-10.1); CREATININE 3.9 mg/dL (0.6-1.3); MAGNESIUM 1.7 mg/dL (1.8-2.4); POTASSIUM 3.3 mmol/L (3.5-5.1); TOTAL PROTEIN, SERUM 5.8 g/dL (6.4-8.2)
[2025-03-06] MEDS ORDERED: LIDOCAINE HCL/MPF 1% 30 ML VIAL IJ ONE (09:28)
[2025-03-06] MEDS ORDERED: HEPARIN SODIUM, PORCINE 1,000 UNIT/ML VIAL ONE (09:28)
[2025-03-06 13:00] VITALS: BP 104/46; TEMP 98.4; O2SAT 94
[2025-03-06] MEDS ORDERED: FENTANYL PF 100MCG/2ML AMPUL ONE (13:54)
[2025-03-06] MEDS ORDERED: FAMOTIDINE/PF INJ 20 MG/2 ML VIAL IV ONE (13:54)
[2025-03-06] MEDS ORDERED: ACETAMINOPHEN 650 MG/20.3 ML UDC NG PRN (14:00)
[2025-03-06 21:00] VITALS: BP 126/67; TEMP 98.2; O2SAT 97
[2025-03-06] MEDS: CEFAZOLIN 1 GM in IV D5W 50 ML IV SCH (21:00)
[2025-03-06 21:07] LABS: INR 1.27 (0.91-1.10); PARTIAL THROMBOPLASTIN TIME 37.1 SEC (24.3-34.3); PROTHROMBIN TIME 13.3 SECS (9.2-11.1)
[2025-03-07 04:00] VITALS: BP 142/62; TEMP 102; O2SAT 95
[2025-03-07] MEDS: ACETAMINOPHEN 650 MG/SUPP.RECT RC PRN (04:59)
[2025-03-07 05:00] VITALS: BP 142/62; TEMP 102; O2SAT 95
[2025-03-07 07:18] LABS: BASOPHILS # (AUTO) 0.1 K/uL (0.0-0.2); BASOPHILS % (AUTO) 0.7 % (0.0-2.0); EOSINOPHILS # (AUTO) 0.3 K/uL (0.0-0.7); EOSINOPHILS % (AUTO) 2.9 % (0.0-6.0); HEMATOCRIT 28 % (39-51); HEMOGLOBIN 8.9 g/dL (13.5-17.5); LYMPHOCYTES # (AUTO) 1.2 K/uL (0.8-4.8); LYMPHOCYTES % (AUTO) 11.5 % (20.0-44.0); MEAN CORPUSCULAR HEMOGLOBIN 32 PG (26.0-33.0); MEAN CORPUSCULAR HGB CONC 32 g/dl (31.0-36.0); MEAN CORPUSCULAR VOLUME 98 fL (80-96); MONOCYTES % (AUTO) 9.5 % (2.0-12.0); NEUTROPHILS # (AUTO) 7.9 K/uL (1.8-8.9); NEUTROPHILS % (AUTO) 75.4 % (43.0-81.0); PLATELET COUNT (AUTO) 225 K/uL (150-450); RED BLOOD CELL COUNT(AUTO) 2.81 MIL/uL (4.5-6.0); RED CELL DISTRIBUTION WIDTH 19.8 % (11.5-15.0); WHITE BLOOD COUNT (AUTO) 10.5 K/uL (4.3-11.0)
[2025-03-07 07:32] LABS: BILIRUBIN,TOTAL 0.9 mg/dL (0.2-1.0); CALCIUM, SERUM 6.4 mg/dL (8.5-10.1); CREATININE 4.4 mg/dL (0.6-1.3); MAGNESIUM 1.7 mg/dL (1.8-2.4); PHOSPHORUS 1.9 mg/dL (2.5-4.9); POTASSIUM 3.6 mmol/L (3.5-5.1); TOTAL PROTEIN, SERUM 5.9 g/dL (6.4-8.2)
[2025-03-07 08:00] VITALS: BP 127/65; TEMP 98.8; O2SAT 95
[2025-03-07] MEDS: Magnesium 1GM/D5W 100ML PREMIX 100 ML IV SCH (10:57)
[2025-03-07] MEDS ORDERED: NALOXONE PREFILLED SYRINGE 2 MG/2 ML SYRINGE IV PRN (13:00)
[2025-03-07] MEDS ORDERED: FENTANYL PF 250MCG/5ML AMPUL IV PRN (13:00)
[2025-03-07] MEDS ORDERED: MIDAZOLAM HCL 2 MG/2ML VIAL IV PRN (13:00)
[2025-03-07] MEDS ORDERED: FLUMAZENIL 0.5 MG VIAL IV PRN (13:00)
[2025-03-07] MEDS: CEFTAZIDIME 1 G in IV D5W 50 ML IV SCH (13:14)
[2025-03-07 16:00] VITALS: BP 136/71; TEMP 97.9; O2SAT 95
[2025-03-07 21:00] VITALS: BP 145/71; TEMP 98.6; O2SAT 97
[2025-03-08 05:00] VITALS: BP 116/55; TEMP 98.1; O2SAT 98
[2025-03-08 07:18] LABS: BASOPHILS # (AUTO) 0.1 K/uL (0.0-0.2); BASOPHILS % (AUTO) 0.7 % (0.0-2.0); EOSINOPHILS # (AUTO) 0.3 K/uL (0.0-0.7); EOSINOPHILS % (AUTO) 2.6 % (0.0-6.0); HEMATOCRIT 27 % (39-51); HEMOGLOBIN 9.1 g/dL (13.5-17.5); LYMPHOCYTES # (AUTO) 1.6 K/uL (0.8-4.8); LYMPHOCYTES % (AUTO) 13.2 % (20.0-44.0); MEAN CORPUSCULAR HEMOGLOBIN 32 PG (26.0-33.0); MEAN CORPUSCULAR HGB CONC 33 g/dl (31.0-36.0); MEAN CORPUSCULAR VOLUME 96 fL (80-96); MONOCYTES # (AUTO) 1.6 K/uL (0.1-1.30); MONOCYTES % (AUTO) 13.2 % (2.0-12.0); NEUTROPHILS # (AUTO) 8.7 K/uL (1.8-8.9); NEUTROPHILS % (AUTO) 70.3 % (43.0-81.0); PLATELET COUNT (AUTO) 243 K/uL (150-450); RED BLOOD CELL COUNT(AUTO) 2.85 MIL/uL (4.5-6.0); RED CELL DISTRIBUTION WIDTH 19.3 % (11.5-15.0); WHITE BLOOD COUNT (AUTO) 12.3 K/uL (4.3-11.0)
[2025-03-08 07:21] LABS: CALCIUM, SERUM 6.8 mg/dL (8.5-10.1); CREATININE 3.5 mg/dL (0.6-1.3); MAGNESIUM 2.5 mg/dL (1.8-2.4); PHOSPHORUS 2.4 mg/dL (2.5-4.9); POTASSIUM 3.6 mmol/L (3.5-5.1)
[2025-03-08 13:00] VITALS: BP 116/55; TEMP 98.1; O2SAT 98
[2025-03-08 21:00] VITALS: BP 140/70; TEMP 98.1; O2SAT 98
[2025-03-09] VITALS (15 sets, daily range): BP systolic 114–143; BP diastolic 51–77; TEMP 97.9–99.3; O2SAT 90–100
[2025-03-09 06:57] LABS: BASOPHILS # (AUTO) 0.1 K/uL (0.0-0.2); BASOPHILS % (AUTO) 0.7 % (0.0-2.0); EOSINOPHILS # (AUTO) 0.6 K/uL (0.0-0.7); EOSINOPHILS % (AUTO) 4.9 % (0.0-6.0); HEMATOCRIT 26 % (39-51); HEMOGLOBIN 8.8 g/dL (13.5-17.5); LYMPHOCYTES # (AUTO) 1.5 K/uL (0.8-4.8); LYMPHOCYTES % (AUTO) 11.5 % (20.0-44.0); MEAN CORPUSCULAR HEMOGLOBIN 31 PG (26.0-33.0); MEAN CORPUSCULAR HGB CONC 33 g/dl (31.0-36.0); MEAN CORPUSCULAR VOLUME 94 fL (80-96); MONOCYTES # (AUTO) 1.1 K/uL (0.1-1.30); MONOCYTES % (AUTO) 8.6 % (2.0-12.0); NEUTROPHILS # (AUTO) 9.7 K/uL (1.8-8.9); NEUTROPHILS % (AUTO) 74.3 % (43.0-81.0); PLATELET COUNT (AUTO) 291 K/uL (150-450); RED BLOOD CELL COUNT(AUTO) 2.78 MIL/uL (4.5-6.0); RED CELL DISTRIBUTION WIDTH 18.9 % (11.5-15.0); WHITE BLOOD COUNT (AUTO) 13.1 K/uL (4.3-11.0)
[2025-03-09 07:15] LABS: CALCIUM, SERUM 6.5 mg/dL (8.5-10.1); CREATININE 4.2 mg/dL (0.6-1.3); MAGNESIUM 2.1 mg/dL (1.8-2.4); PHOSPHORUS 2.4 mg/dL (2.5-4.9); POTASSIUM 3.3 mmol/L (3.5-5.1)
[2025-03-09] MEDS ORDERED: NALOXONE PREFILLED SYRINGE 2 MG/2 ML SYRINGE IV PRN (11:30)
[2025-03-09] MEDS ORDERED: FLUMAZENIL 0.5 MG VIAL IV PRN (11:30)
[2025-03-09] MEDS: MIDAZOLAM HCL 2 MG/2ML VIAL IV PRN (11:52)
[2025-03-09] MEDS: FENTANYL PF 250MCG/5ML AMPUL IV PRN (11:52)
[2025-03-10] MEDS: CEFTAZIDIME 1 G in IV D5W 50 ML IV SCH (01:11)
[2025-03-10 04:00] VITALS: BP 139/70; TEMP 98.4; O2SAT 98
[2025-03-10 06:34] LABS: BASOPHILS # (AUTO) 0.1 K/uL (0.0-0.2); BASOPHILS % (AUTO) 0.5 % (0.0-2.0); EOSINOPHILS # (AUTO) 0.5 K/uL (0.0-0.7); EOSINOPHILS % (AUTO) 4.6 % (0.0-6.0); HEMATOCRIT 26 % (39-51); HEMOGLOBIN 8.4 g/dL (13.5-17.5); LYMPHOCYTES # (AUTO) 1.3 K/uL (0.8-4.8); LYMPHOCYTES % (AUTO) 11.7 % (20.0-44.0); MEAN CORPUSCULAR HEMOGLOBIN 31 PG (26.0-33.0); MEAN CORPUSCULAR HGB CONC 33 g/dl (31.0-36.0); MEAN CORPUSCULAR VOLUME 95 fL (80-96); MONOCYTES % (AUTO) 9.2 % (2.0-12.0); NEUTROPHILS # (AUTO) 8.2 K/uL (1.8-8.9); PLATELET COUNT (AUTO) 275 K/uL (150-450); RED BLOOD CELL COUNT(AUTO) 2.71 MIL/uL (4.5-6.0); RED CELL DISTRIBUTION WIDTH 19.4 % (11.5-15.0); WHITE BLOOD COUNT (AUTO) 11.1 K/uL (4.3-11.0)
[2025-03-10 06:39] LABS: CALCIUM, SERUM 6.2 mg/dL (8.5-10.1); CREATININE 4.9 mg/dL (0.6-1.3); POTASSIUM 3.5 mmol/L (3.5-5.1)
[2025-03-10 06:45] LABS: MAGNESIUM 2.2 mg/dL (1.8-2.4); PHOSPHORUS 3.3 mg/dL (2.5-4.9)
[2025-03-10 08:00] VITALS: BP 128/62; TEMP 97.9; O2SAT 99
[2025-03-10] MEDS ORDERED: VANCOMYCIN 1 GM in IV D5W 250 ML IV ONE (15:00)
[2025-03-10] MEDS: VANCOMYCIN 500 MG in IV D5W 100ml IV ONE (15:32)
[2025-03-10 16:00] VITALS: BP 137/71; TEMP 99; O2SAT 97
[2025-03-10 20:00] VITALS: BP 143/64; TEMP 98.2; O2SAT 97
[2025-03-11 04:00] VITALS: BP 124/61; TEMP 97.7; O2SAT 96
[2025-03-11 06:42] LABS: BASOPHILS # (AUTO) 0.1 K/uL (0.0-0.2); BASOPHILS % (AUTO) 0.7 % (0.0-2.0); EOSINOPHILS # (AUTO) 0.4 K/uL (0.0-0.7); EOSINOPHILS % (AUTO) 4.7 % (0.0-6.0); HEMATOCRIT 27 % (39-51); HEMOGLOBIN 8.5 g/dL (13.5-17.5); LYMPHOCYTES # (AUTO) 1.3 K/uL (0.8-4.8); MEAN CORPUSCULAR HEMOGLOBIN 31 PG (26.0-33.0); MEAN CORPUSCULAR HGB CONC 32 g/dl (31.0-36.0); MEAN CORPUSCULAR VOLUME 97 fL (80-96); MONOCYTES # (AUTO) 0.9 K/uL (0.1-1.30); NEUTROPHILS % (AUTO) 69.6 % (43.0-81.0); PLATELET COUNT (AUTO) 272 K/uL (150-450); RED BLOOD CELL COUNT(AUTO) 2.73 MIL/uL (4.5-6.0); RED CELL DISTRIBUTION WIDTH 19.7 % (11.5-15.0); WHITE BLOOD COUNT (AUTO) 8.7 K/uL (4.3-11.0)
[2025-03-11 07:04] LABS: CALCIUM, SERUM 6.1 mg/dL (8.5-10.1); CREATININE 5.7 mg/dL (0.6-1.3); MAGNESIUM 2.4 mg/dL (1.8-2.4); PHOSPHORUS 3.8 mg/dL (2.5-4.9); POTASSIUM 3.9 mmol/L (3.5-5.1)
[2025-03-11 08:00] VITALS: BP 128/70; TEMP 97.9; O2SAT 99
[2025-03-11 12:19] VITALS: BP 135/71; TEMP 98.2; O2SAT 97
[2025-03-11 16:00] VITALS: BP 128/68; TEMP 98.5; O2SAT 97
[2025-03-11 20:00] VITALS: BP 152/68; TEMP 98.4; O2SAT 97
[2025-03-11] MEDS: VANCOMYCIN POST DIALYSIS 500MG IV PRN (21:09)
[2025-03-12 04:00] VITALS: BP 153/68; TEMP 98.8; O2SAT 96
[2025-03-12 06:45] LABS: BASOPHILS # (AUTO) 0.1 K/uL (0.0-0.2); BASOPHILS % (AUTO) 0.9 % (0.0-2.0); EOSINOPHILS # (AUTO) 0.3 K/uL (0.0-0.7); EOSINOPHILS % (AUTO) 3.1 % (0.0-6.0); HEMATOCRIT 28 % (39-51); HEMOGLOBIN 9.3 g/dL (13.5-17.5); LYMPHOCYTES # (AUTO) 1.8 K/uL (0.8-4.8); LYMPHOCYTES % (AUTO) 17.8 % (20.0-44.0); MEAN CORPUSCULAR HEMOGLOBIN 32 PG (26.0-33.0); MEAN CORPUSCULAR HGB CONC 34 g/dl (31.0-36.0); MEAN CORPUSCULAR VOLUME 95 fL (80-96); MONOCYTES # (AUTO) 1.1 K/uL (0.1-1.30); MONOCYTES % (AUTO) 10.5 % (2.0-12.0); NEUTROPHILS % (AUTO) 67.7 % (43.0-81.0); PLATELET COUNT (AUTO) 307 K/uL (150-450); RED BLOOD CELL COUNT(AUTO) 2.89 MIL/uL (4.5-6.0); RED CELL DISTRIBUTION WIDTH 19.2 % (11.5-15.0); WHITE BLOOD COUNT (AUTO) 10.4 K/uL (4.3-11.0)
[2025-03-12 07:12] LABS: CALCIUM, SERUM 7.2 mg/dL (8.5-10.1); CREATININE 4.6 mg/dL (0.6-1.3); MAGNESIUM 2.2 mg/dL (1.8-2.4); PHOSPHORUS 3.7 mg/dL (2.5-4.9); POTASSIUM 3.7 mmol/L (3.5-5.1)
[2025-03-12 08:00] VITALS: BP 134/66; TEMP 98.6; O2SAT 98
[2025-03-12 13:03] VITALS: BP 117/67
[2025-03-12 16:00] VITALS: BP 134/62; TEMP 98.3; O2SAT 97
[2025-03-12 20:00] VITALS: BP 143/68; TEMP 98.4; O2SAT 97
[2025-03-13 04:00] VITALS: BP 142/66; TEMP 98.1; O2SAT 99
[2025-03-13 06:47] LABS: BASOPHILS # (AUTO) 0.1 K/uL (0.0-0.2); BASOPHILS % (AUTO) 0.6 % (0.0-2.0); EOSINOPHILS # (AUTO) 0.3 K/uL (0.0-0.7); HEMATOCRIT 26 % (39-51); HEMOGLOBIN 8.7 g/dL (13.5-17.5); LYMPHOCYTES # (AUTO) 1.9 K/uL (0.8-4.8); LYMPHOCYTES % (AUTO) 18.6 % (20.0-44.0); MEAN CORPUSCULAR HEMOGLOBIN 31 PG (26.0-33.0); MEAN CORPUSCULAR HGB CONC 33 g/dl (31.0-36.0); MEAN CORPUSCULAR VOLUME 94 fL (80-96); MONOCYTES # (AUTO) 1.2 K/uL (0.1-1.30); MONOCYTES % (AUTO) 11.8 % (2.0-12.0); NEUTROPHILS # (AUTO) 6.7 K/uL (1.8-8.9); PLATELET COUNT (AUTO) 292 K/uL (150-450); RED BLOOD CELL COUNT(AUTO) 2.76 MIL/uL (4.5-6.0); RED CELL DISTRIBUTION WIDTH 19.2 % (11.5-15.0); WHITE BLOOD COUNT (AUTO) 10.1 K/uL (4.3-11.0)
[2025-03-13 07:17] LABS: CREATININE 5.6 mg/dL (0.6-1.3); MAGNESIUM 2.3 mg/dL (1.8-2.4); PHOSPHORUS 4.5 mg/dL (2.5-4.9); POTASSIUM 3.8 mmol/L (3.5-5.1)
[2025-03-13 08:00] VITALS: BP 148/67; TEMP 98.1; O2SAT 94
[2025-03-13 16:00] VITALS: BP 130/70; TEMP 98.5; O2SAT 97
[2025-03-13 20:00] VITALS: BP 118/70; TEMP 98.2; O2SAT 96
[2025-03-14 04:00] VITALS: BP 118/64; TEMP 98.2; O2SAT 96
[2025-03-14 06:55] LABS: BASOPHILS # (AUTO) 0.1 K/uL (0.0-0.2); EOSINOPHILS # (AUTO) 0.2 K/uL (0.0-0.7); EOSINOPHILS % (AUTO) 2.8 % (0.0-6.0); HEMATOCRIT 26 % (39-51); HEMOGLOBIN 8.6 g/dL (13.5-17.5); LYMPHOCYTES # (AUTO) 1.6 K/uL (0.8-4.8); LYMPHOCYTES % (AUTO) 20.5 % (20.0-44.0); MEAN CORPUSCULAR HEMOGLOBIN 31 PG (26.0-33.0); MEAN CORPUSCULAR HGB CONC 33 g/dl (31.0-36.0); MEAN CORPUSCULAR VOLUME 94 fL (80-96); MONOCYTES # (AUTO) 0.9 K/uL (0.1-1.30); MONOCYTES % (AUTO) 11.8 % (2.0-12.0); NEUTROPHILS % (AUTO) 63.9 % (43.0-81.0); PLATELET COUNT (AUTO) 279 K/uL (150-450); RED BLOOD CELL COUNT(AUTO) 2.74 MIL/uL (4.5-6.0); RED CELL DISTRIBUTION WIDTH 19.4 % (11.5-15.0); WHITE BLOOD COUNT (AUTO) 7.9 K/uL (4.3-11.0)
[2025-03-14 06:59] LABS: CREATININE 4.3 mg/dL (0.6-1.3); MAGNESIUM 2.2 mg/dL (1.8-2.4); PHOSPHORUS 4.5 mg/dL (2.5-4.9); POTASSIUM 3.4 mmol/L (3.5-5.1)
[2025-03-14 08:00] VITALS: BP 117/64; TEMP 98.4; O2SAT 98
[2025-03-14 16:00] VITALS: BP 104/61; TEMP 98.8; O2SAT 98
[2025-03-14 20:00] VITALS: BP 113/56; TEMP 98.2; O2SAT 96
[2025-03-15 04:00] VITALS: BP 109/67; TEMP 97.7; O2SAT 96
[2025-03-15 07:41] LABS: CALCIUM, SERUM 6.4 mg/dL (8.5-10.1); CREATININE 5.3 mg/dL (0.6-1.3); POTASSIUM 4.5 mmol/L (3.5-5.1)
[2025-03-15 08:00] VITALS: BP 121/54; TEMP 98.2; O2SAT 100
[2025-03-15] MEDS: APIXABAN 5 MG TABLET PO SCH (09:00)
[2025-03-15 16:00] VITALS: BP 119/65; TEMP 98.4; O2SAT 95
[2025-03-15 20:00] VITALS: BP 125/64; TEMP 99.7; O2SAT 95
[2025-03-15 21:00] VITALS: BP 125/64; TEMP 99.7; O2SAT 95
[2025-03-16 04:00] VITALS: BP 118/62; TEMP 97.7; O2SAT 96
[2025-03-16 07:20] LABS: CALCIUM, SERUM 6.1 mg/dL (8.5-10.1); CREATININE 6.3 mg/dL (0.6-1.3); POTASSIUM 4.8 mmol/L (3.5-5.1)
[2025-03-16 08:00] VITALS: BP 106/62; TEMP 98; O2SAT 95
[2025-03-16 11:02] LABS: BASOPHILS # (AUTO) 0.1 K/uL (0.0-0.2); BASOPHILS % (AUTO) 1.3 % (0.0-2.0); EOSINOPHILS # (AUTO) 0.2 K/uL (0.0-0.7); EOSINOPHILS % (AUTO) 1.6 % (0.0-6.0); HEMATOCRIT 27 % (39-51); HEMOGLOBIN 8.7 g/dL (13.5-17.5); LYMPHOCYTES # (AUTO) 1.6 K/uL (0.8-4.8); LYMPHOCYTES % (AUTO) 15.3 % (20.0-44.0); MEAN CORPUSCULAR HEMOGLOBIN 31 PG (26.0-33.0); MEAN CORPUSCULAR HGB CONC 33 g/dl (31.0-36.0); MEAN CORPUSCULAR VOLUME 96 fL (80-96); MONOCYTES # (AUTO) 1.1 K/uL (0.1-1.30); MONOCYTES % (AUTO) 10.4 % (2.0-12.0); NEUTROPHILS # (AUTO) 7.5 K/uL (1.8-8.9); NEUTROPHILS % (AUTO) 71.4 % (43.0-81.0); PLATELET COUNT (AUTO) 324 K/uL (150-450); RED BLOOD CELL COUNT(AUTO) 2.79 MIL/uL (4.5-6.0); RED CELL DISTRIBUTION WIDTH 19.9 % (11.5-15.0); WHITE BLOOD COUNT (AUTO) 10.5 K/uL (4.3-11.0)
[2025-03-16] MEDS: IV D5/0.45 NACL 500 ML IV ONE (15:03)
[2025-03-16 16:00] VITALS: BP 97/55; TEMP 98.1; O2SAT 94
[2025-03-16 20:00] VITALS: BP 107/59; TEMP 97.5; TEMP 97.7; O2SAT 93; O2SAT 94
[2025-03-17 04:00] VITALS: BP 105/58; TEMP 97.7; O2SAT 96
[2025-03-17 08:00] VITALS: BP 123/58; TEMP 97.8; O2SAT 96
[2025-03-17 10:45] LABS: CREATININE 7.4 mg/dL (0.6-1.3); POTASSIUM 4.9 mmol/L (3.5-5.1)
[2025-03-17 16:00] VITALS: BP 129/62; TEMP 97.6; O2SAT 96
[2025-03-17 20:00] VITALS: BP 118/62; TEMP 98.2; O2SAT 95
[2025-03-18] VITALS: BP 104/53; TEMP 98.5; O2SAT 95
[2025-03-18 04:00] VITALS: BP 105/55; TEMP 98.4; O2SAT 98
[2025-03-18 07:01] LABS: CARBON DIOXIDE 23 mmol/L (21-32); CHLORIDE 99 mmol/L (98-107); GLUCOSE 82 mg/dL (74-106); POTASSIUM 4.9 mmol/L (3.5-5.1); SODIUM SERUM 138 mmol/L (136-145); UREA NITROGEN, BLOOD 53 mg/dL (7-18)
[2025-03-18 07:35] LABS: CALCIUM, SERUM 5.5 mg/dL (8.5-10.1); CREATININE 8.2 mg/dL (0.6-1.3)
[2025-03-18 08:00] VITALS: BP 105/55; TEMP 98.6; O2SAT 98
[2025-03-18 12:00] VITALS: BP 108/60; TEMP 98.6; O2SAT 98
[2025-03-18 16:00] VITALS: BP 108/59; TEMP 98.2; O2SAT 98
[2025-03-18 20:00] VITALS: BP 91/54; TEMP 98.6; O2SAT 95
[2025-03-18] MEDS ORDERED: ALBUMIN 25% 50 ML IV ONE (20:26)
[2025-03-18] MEDS: ALBUMIN 25% 12.5 GM/50 ML BOTTLE IV ONE (20:34)
[2025-03-19] VITALS: BP 115/50; TEMP 97.3; O2SAT 95
[2025-03-19 04:00] VITALS: BP 121/61; TEMP 98.2; O2SAT 95
[2025-03-19 06:33] LABS: CALCIUM, SERUM 6.3 mg/dL (8.5-10.1); CREATININE 5.3 mg/dL (0.6-1.3); POTASSIUM 3.8 mmol/L (3.5-5.1)
[2025-03-19 08:00] VITALS: BP 125/56; TEMP 97.7; O2SAT 95
[2025-03-19] MEDS: LIDOCAINE HCL/PF 1% 30 ML SDV IJ ONE (08:39)
[2025-03-19 12:00] VITALS: BP 110/58; TEMP 98.1; O2SAT 95
[2025-03-19 16:00] VITALS: BP 116/63; TEMP 98.1; O2SAT 95
[2025-03-19 20:00] VITALS: BP 122/71; TEMP 97.7; O2SAT 98
[2025-03-20] VITALS: BP 116/60; TEMP 97.5; O2SAT 97
[2025-03-20 04:00] VITALS: BP 120/66; TEMP 98.1; O2SAT 99
[2025-03-20 07:42] LABS: CALCIUM, SERUM 6.3 mg/dL (8.5-10.1); CREATININE 6.2 mg/dL (0.6-1.3); POTASSIUM 4.1 mmol/L (3.5-5.1)
[2025-03-20 08:00] VITALS: BP 113/60; TEMP 98.2; O2SAT 96
[2025-03-20 12:09] VITALS: BP 113/64; TEMP 97.7; O2SAT 96
[2025-03-20] MEDS: ALBUMIN 25% 25 GM in PREMIX 1 EA IV PRN (14:14)
[2025-03-20 15:23] LABS: BASOPHILS % (AUTO) 0.6 % (0.0-2.0); EOSINOPHILS # (AUTO) 0.1 K/uL (0.0-0.7); EOSINOPHILS % (AUTO) 1.1 % (0.0-6.0); HEMATOCRIT 23 % (39-51); LYMPHOCYTES # (AUTO) 0.7 K/uL (0.8-4.8); LYMPHOCYTES % (AUTO) 10.2 % (20.0-44.0); MEAN CORPUSCULAR HEMOGLOBIN 31 PG (26.0-33.0); MEAN CORPUSCULAR HGB CONC 32 g/dl (31.0-36.0); MEAN CORPUSCULAR VOLUME 97 fL (80-96); MONOCYTES # (AUTO) 0.7 K/uL (0.1-1.30); MONOCYTES % (AUTO) 9.9 % (2.0-12.0); NEUTROPHILS # (AUTO) 5.7 K/uL (1.8-8.9); NEUTROPHILS % (AUTO) 78.2 % (43.0-81.0); PLATELET COUNT (AUTO) 358 K/uL (150-450); RED BLOOD CELL COUNT(AUTO) 2.38 MIL/uL (4.5-6.0); RED CELL DISTRIBUTION WIDTH 20.1 % (11.5-15.0); WHITE BLOOD COUNT (AUTO) 7.3 K/uL (4.3-11.0)
[2025-03-20 15:35] LABS: HEMOGLOBIN 7.4 g/dL (13.5-17.5)
[2025-03-20 16:03] VITALS: BP 106/59; TEMP 97.6; O2SAT 98
[2025-03-20 20:00] VITALS: BP 103/69; TEMP 98.6; O2SAT 100
[2025-03-21] VITALS: BP 118/60; TEMP 97.9; O2SAT 100
[2025-03-21 04:00] VITALS: BP 110/63; TEMP 97.5; O2SAT 99
[2025-03-21 06:38] LABS: BASOPHILS # (AUTO) 0.1 K/uL (0.0-0.2); BASOPHILS % (AUTO) 1.6 % (0.0-2.0); EOSINOPHILS # (AUTO) 0.1 K/uL (0.0-0.7); EOSINOPHILS % (AUTO) 1.9 % (0.0-6.0); HEMATOCRIT 21 % (39-51); HEMOGLOBIN 7.1 g/dL (13.5-17.5); LYMPHOCYTES # (AUTO) 1.1 K/uL (0.8-4.8); LYMPHOCYTES % (AUTO) 17.8 % (20.0-44.0); MEAN CORPUSCULAR HEMOGLOBIN 33 PG (26.0-33.0); MEAN CORPUSCULAR HGB CONC 34 g/dl (31.0-36.0); MEAN CORPUSCULAR VOLUME 97 fL (80-96); MONOCYTES # (AUTO) 0.6 K/uL (0.1-1.30); MONOCYTES % (AUTO) 9.6 % (2.0-12.0); NEUTROPHILS # (AUTO) 4.2 K/uL (1.8-8.9); NEUTROPHILS % (AUTO) 69.1 % (43.0-81.0); PLATELET COUNT (AUTO) 371 K/uL (150-450); RED BLOOD CELL COUNT(AUTO) 2.19 MIL/uL (4.5-6.0); RED CELL DISTRIBUTION WIDTH 19.9 % (11.5-15.0); WHITE BLOOD COUNT (AUTO) 6.1 K/uL (4.3-11.0)
[2025-03-21 08:00] VITALS: BP 98/57; TEMP 97.7; O2SAT 98
[2025-03-21 08:10] LABS: CALCIUM, SERUM 6.7 mg/dL (8.5-10.1); CREATININE 4.2 mg/dL (0.6-1.3); MAGNESIUM 2.3 mg/dL (1.8-2.4); PHOSPHORUS 4.8 mg/dL (2.5-4.9); POTASSIUM 4.1 mmol/L (3.5-5.1)
[2025-03-21] MEDS: IV NS 0.9% 500 ML IV ONE (08:53)
[2025-03-21] MEDS: MIDODRINE HCL (5MG) 5 MG TABLET PO SCH (10:30)
[2025-03-21 12:00] VITALS: BP 103/57; TEMP 97.5; TEMP 97.7; O2SAT 98
[2025-03-21] MEDS: EPOETIN ALFA (10,000 UNIT) 10,000 UNIT/ML VIAL SQ SCH (12:09)
[2025-03-21] MEDS: SOD FERRIC GLUC 125 MG in IV NS 0.9% 100 ML IV SCH (13:20)
[2025-03-21 16:00] VITALS: BP 105/53; TEMP 97.5; O2SAT 97
[2025-03-21 20:00] VITALS: BP 129/66; TEMP 98.1; O2SAT 97
[2025-03-22] VITALS: BP 133/69; TEMP 98.1; O2SAT 100
[2025-03-22 04:00] VITALS: BP 127/70; TEMP 97.7; O2SAT 98
[2025-03-22 07:05] LABS: BASOPHILS # (AUTO) 0.1 K/uL (0.0-0.2); BASOPHILS % (AUTO) 1.4 % (0.0-2.0); EOSINOPHILS # (AUTO) 0.2 K/uL (0.0-0.7); EOSINOPHILS % (AUTO) 3.5 % (0.0-6.0); HEMATOCRIT 23 % (39-51); HEMOGLOBIN 7.6 g/dL (13.5-17.5); LYMPHOCYTES # (AUTO) 1.5 K/uL (0.8-4.8); LYMPHOCYTES % (AUTO) 26.6 % (20.0-44.0); MEAN CORPUSCULAR HEMOGLOBIN 32 PG (26.0-33.0); MEAN CORPUSCULAR HGB CONC 33 g/dl (31.0-36.0); MEAN CORPUSCULAR VOLUME 96 fL (80-96); MONOCYTES # (AUTO) 0.7 K/uL (0.1-1.30); NEUTROPHILS # (AUTO) 3.3 K/uL (1.8-8.9); NEUTROPHILS % (AUTO) 56.5 % (43.0-81.0); PLATELET COUNT (AUTO) 427 K/uL (150-450); RED BLOOD CELL COUNT(AUTO) 2.38 MIL/uL (4.5-6.0); WHITE BLOOD COUNT (AUTO) 5.8 K/uL (4.3-11.0)
[2025-03-22 07:48] LABS: CALCIUM, SERUM 6.8 mg/dL (8.5-10.1); CREATININE 5.1 mg/dL (0.6-1.3)
[2025-03-22 08:00] VITALS: BP 121/73; TEMP 97.7; O2SAT 98
[2025-03-22] MEDS ORDERED: LIDOCAINE HCL/MPF 1% 30 ML VIAL IJ ONE (10:41)
[2025-03-22] MEDS ORDERED: HEPARIN SODIUM, PORCINE 1,000 UNIT/ML VIAL ONE (10:41)
[2025-03-22] MEDS ORDERED: FENTANYL PF 100MCG/2ML AMPUL ONE (11:23)
[2025-03-22] MEDS ORDERED: FAMOTIDINE/PF INJ 20 MG/2 ML VIAL IV ONE (11:23)
[2025-03-22 13:00] VITALS: BP 123/65; TEMP 98.4; O2SAT 98
[2025-03-22 16:00] VITALS: BP 121/73; TEMP 98.2; O2SAT 97
[2025-03-22 20:00] VITALS: BP 123/60; TEMP 97.5; O2SAT 98
[2025-03-22] MEDS: DAPTOMYCIN 500 MG in IV NS 0.9% 50 ML IV SCH (20:37)
[2025-03-23 04:00] VITALS: BP 125/59; TEMP 97.2; O2SAT 98
[2025-03-23 07:38] LABS: BASOPHILS # (AUTO) 0.1 K/uL (0.0-0.2); BASOPHILS % (AUTO) 2.3 % (0.0-2.0); EOSINOPHILS # (AUTO) 0.3 K/uL (0.0-0.7); EOSINOPHILS % (AUTO) 4.9 % (0.0-6.0); HEMATOCRIT 22 % (39-51); HEMOGLOBIN 7.3 g/dL (13.5-17.5); LYMPHOCYTES # (AUTO) 1.2 K/uL (0.8-4.8); LYMPHOCYTES % (AUTO) 23.1 % (20.0-44.0); MEAN CORPUSCULAR HEMOGLOBIN 32 PG (26.0-33.0); MEAN CORPUSCULAR HGB CONC 33 g/dl (31.0-36.0); MEAN CORPUSCULAR VOLUME 98 fL (80-96); MONOCYTES # (AUTO) 0.6 K/uL (0.1-1.30); MONOCYTES % (AUTO) 12.6 % (2.0-12.0); NEUTROPHILS # (AUTO) 2.9 K/uL (1.8-8.9); NEUTROPHILS % (AUTO) 57.1 % (43.0-81.0); PLATELET COUNT (AUTO) 364 K/uL (150-450); RED BLOOD CELL COUNT(AUTO) 2.27 MIL/uL (4.5-6.0); RED CELL DISTRIBUTION WIDTH 19.5 % (11.5-15.0); WHITE BLOOD COUNT (AUTO) 5.1 K/uL (4.3-11.0)
[2025-03-23 07:46] LABS: CALCIUM, SERUM 6.7 mg/dL (8.5-10.1); CREATININE 4.3 mg/dL (0.6-1.3); POTASSIUM 4.1 mmol/L (3.5-5.1)
[2025-03-23 08:00] VITALS: BP 125/68; TEMP 97.5; O2SAT 99
[2025-03-23 16:00] VITALS: BP 107/65; TEMP 97.5; O2SAT 98
[2025-03-23 20:00] VITALS: BP 110/61; TEMP 97.7; O2SAT 100
[2025-03-24] VITALS: BP 110/61; TEMP 97.7; O2SAT 100
[2025-03-24 04:00] VITALS: BP 127/62; TEMP 97; O2SAT 99
[2025-03-24 07:04] LABS: CALCIUM, SERUM 6.6 mg/dL (8.5-10.1); CREATININE 4.9 mg/dL (0.6-1.3)
[2025-03-24 08:00] VITALS: BP 117/70; TEMP 97.5; O2SAT 100
[2025-03-24 08:14] LABS: BASOPHILS # (AUTO) 0.1 K/uL (0.0-0.2); BASOPHILS % (AUTO) 1.4 % (0.0-2.0); EOSINOPHILS # (AUTO) 0.2 K/uL (0.0-0.7); HEMATOCRIT 28 % (39-51); HEMOGLOBIN 8.2 g/dL (13.5-17.5); LYMPHOCYTES # (AUTO) 1.5 K/uL (0.8-4.8); LYMPHOCYTES % (AUTO) 31.5 % (20.0-44.0); MEAN CORPUSCULAR HEMOGLOBIN 32 PG (26.0-33.0); MEAN CORPUSCULAR HGB CONC 30 g/dl (31.0-36.0); MEAN CORPUSCULAR VOLUME 107 fL (80-96); MONOCYTES # (AUTO) 0.6 K/uL (0.1-1.30); MONOCYTES % (AUTO) 13.3 % (2.0-12.0); NEUTROPHILS # (AUTO) 2.3 K/uL (1.8-8.9); NEUTROPHILS % (AUTO) 48.8 % (43.0-81.0); PLATELET COUNT (AUTO) 348 K/uL (150-450); RED BLOOD CELL COUNT(AUTO) 2.57 MIL/uL (4.5-6.0); RED CELL DISTRIBUTION WIDTH 21.2 % (11.5-15.0); WHITE BLOOD COUNT (AUTO) 4.7 K/uL (4.3-11.0)
[2025-03-24 12:00] VITALS: BP 117/70; TEMP 97.5; O2SAT 100
[2025-03-24 16:00] VITALS: BP 120/85; TEMP 97.3; O2SAT 100
[2025-03-24 20:00] VITALS: BP 111/62; TEMP 97.3; O2SAT 98
[2025-03-25 04:00] VITALS: BP 121/74; TEMP 97.9; O2SAT 99
[2025-03-25 07:36] LABS: BASOPHILS # (AUTO) 0.1 K/uL (0.0-0.2); BASOPHILS % (AUTO) 1.8 % (0.0-2.0); EOSINOPHILS # (AUTO) 0.2 K/uL (0.0-0.7); EOSINOPHILS % (AUTO) 3.5 % (0.0-6.0); HEMATOCRIT 24 % (39-51); LYMPHOCYTES # (AUTO) 1.8 K/uL (0.8-4.8); LYMPHOCYTES % (AUTO) 28.4 % (20.0-44.0); MEAN CORPUSCULAR HEMOGLOBIN 32 PG (26.0-33.0); MEAN CORPUSCULAR HGB CONC 33 g/dl (31.0-36.0); MEAN CORPUSCULAR VOLUME 98 fL (80-96); MONOCYTES # (AUTO) 0.7 K/uL (0.1-1.30); MONOCYTES % (AUTO) 11.9 % (2.0-12.0); NEUTROPHILS # (AUTO) 3.4 K/uL (1.8-8.9); NEUTROPHILS % (AUTO) 54.4 % (43.0-81.0); PLATELET COUNT (AUTO) 318 K/uL (150-450); RED BLOOD CELL COUNT(AUTO) 2.49 MIL/uL (4.5-6.0); RED CELL DISTRIBUTION WIDTH 19.8 % (11.5-15.0); WHITE BLOOD COUNT (AUTO) 6.2 K/uL (4.3-11.0)
[2025-03-25 08:00] VITALS: BP 118/68; TEMP 98.1; O2SAT 99
[2025-03-25 08:10] LABS: CALCIUM, SERUM 7.2 mg/dL (8.5-10.1); CREATININE 4.3 mg/dL (0.6-1.3); POTASSIUM 3.9 mmol/L (3.5-5.1)
[2025-03-25 12:10] VITALS: BP 118/68; TEMP 98.1; O2SAT 99
[2025-03-25 16:00] VITALS: BP 128/77; TEMP 97.5; O2SAT 95
[2025-03-25 20:00] VITALS: BP 119/62; TEMP 98.2; O2SAT 98
[2025-03-25] MEDS: MAGNESIUM HYDROXIDE 30 ML UDC PO PRN (22:02)
[2025-03-26] VITALS (9 sets, daily range): BP systolic 120–138; BP diastolic 61–78; TEMP 97.7–98.2; O2SAT 97–98
[2025-03-26] MEDS: TRAMADOL HCL 50 MG TABLET PO PRN (03:32)
[2025-03-26 08:06] LABS: BASOPHILS # (AUTO) 0.1 K/uL (0.0-0.2); BASOPHILS % (AUTO) 1.4 % (0.0-2.0); EOSINOPHILS # (AUTO) 0.3 K/uL (0.0-0.7); HEMATOCRIT 21 % (39-51); LYMPHOCYTES # (AUTO) 1.5 K/uL (0.8-4.8); LYMPHOCYTES % (AUTO) 27.4 % (20.0-44.0); MEAN CORPUSCULAR HEMOGLOBIN 32 PG (26.0-33.0); MEAN CORPUSCULAR HGB CONC 32 g/dl (31.0-36.0); MEAN CORPUSCULAR VOLUME 98 fL (80-96); MONOCYTES # (AUTO) 0.8 K/uL (0.1-1.30); MONOCYTES % (AUTO) 14.4 % (2.0-12.0); NEUTROPHILS # (AUTO) 2.9 K/uL (1.8-8.9); NEUTROPHILS % (AUTO) 51.8 % (43.0-81.0); PLATELET COUNT (AUTO) 289 K/uL (150-450); RED BLOOD CELL COUNT(AUTO) 2.17 MIL/uL (4.5-6.0); RED CELL DISTRIBUTION WIDTH 20.4 % (11.5-15.0); WHITE BLOOD COUNT (AUTO) 5.5 K/uL (4.3-11.0)
[2025-03-26 08:14] LABS: CALCIUM, SERUM 6.8 mg/dL (8.5-10.1); POTASSIUM 4.1 mmol/L (3.5-5.1)
[2025-03-26 08:20] LABS: HEMOGLOBIN 6.9 g/dL (13.5-17.5)
[2025-03-26 14:01] LABS: EOSINOPHILS % (MANUAL) 5 % (0-4); LYMPHOCYTES % (MANUAL) 27 % (16-48); MONOCYTES % (MANUAL) 13 % (0-11.0); NEUTROPHILS % (MANUAL) 55 (42-76); PLATELET ESTIMATE ADEQUATE
[2025-03-26 16:32] LABS: INR 1.31 (0.91-1.10); PARTIAL THROMBOPLASTIN TIME 36.5 SEC (24.3-34.3); PROTHROMBIN TIME 13.6 SECS (9.2-11.1)
[2025-03-26 18:17] LABS: APPEARANCE,URINE BLOODY (CLEAR)
[2025-03-26 18:19] LABS: COLOR,URINE RED (YELLOW)
[2025-03-26 18:23] LABS: BACTERIA,URINE None seen /HPF (None Seen); RBC,URINE TOO NUMEROUS TO COUN /HPF (0-2); SQUAMOUS EPITHELIAL CELL,UR 0-2 /HPF (None Seen)
[2025-03-27 05:00] VITALS: BP 117/69; TEMP 98.6; O2SAT 97
[2025-03-27 08:00] VITALS: BP 126/65; TEMP 98.6; O2SAT 98
[2025-03-27 11:12] LABS: BASOPHILS # (AUTO) 0.1 K/uL (0.0-0.2); BASOPHILS % (AUTO) 1.1 % (0.0-2.0); EOSINOPHILS # (AUTO) 0.2 K/uL (0.0-0.7); EOSINOPHILS % (AUTO) 3.7 % (0.0-6.0); HEMATOCRIT 27 % (39-51); HEMOGLOBIN 8.7 g/dL (13.5-17.5); LYMPHOCYTES # (AUTO) 1.1 K/uL (0.8-4.8); LYMPHOCYTES % (AUTO) 17.4 % (20.0-44.0); MEAN CORPUSCULAR HEMOGLOBIN 32 PG (26.0-33.0); MEAN CORPUSCULAR HGB CONC 33 g/dl (31.0-36.0); MEAN CORPUSCULAR VOLUME 97 fL (80-96); MONOCYTES # (AUTO) 0.9 K/uL (0.1-1.30); NEUTROPHILS % (AUTO) 63.8 % (43.0-81.0); PLATELET COUNT (AUTO) 225 K/uL (150-450); RED BLOOD CELL COUNT(AUTO) 2.74 MIL/uL (4.5-6.0); RED CELL DISTRIBUTION WIDTH 22.5 % (11.5-15.0); WHITE BLOOD COUNT (AUTO) 6.3 K/uL (4.3-11.0)
[2025-03-27 11:19] LABS: CALCIUM, SERUM 6.8 mg/dL (8.5-10.1); CREATININE 4.5 mg/dL (0.6-1.3); POTASSIUM 4.4 mmol/L (3.5-5.1)
[2025-03-27 16:00] VITALS: BP_SYST 117; BP_SYST 137; BP_DIAS 62; BP_DIAS 69; TEMP 98.1; TEMP 98.6; O2SAT 97; O2SAT 98
[2025-03-27 17:35] LABS: BASOPHILS # (AUTO) 0.1 K/uL (0.0-0.2); BASOPHILS % (AUTO) 1.2 % (0.0-2.0); EOSINOPHILS # (AUTO) 0.3 K/uL (0.0-0.7); EOSINOPHILS % (AUTO) 4.5 % (0.0-6.0); HEMATOCRIT 25 % (39-51); HEMOGLOBIN 8.1 g/dL (13.5-17.5); LYMPHOCYTES # (AUTO) 1.4 K/uL (0.8-4.8); LYMPHOCYTES % (AUTO) 22.3 % (20.0-44.0); MEAN CORPUSCULAR HEMOGLOBIN 31 PG (26.0-33.0); MEAN CORPUSCULAR HGB CONC 33 g/dl (31.0-36.0); MEAN CORPUSCULAR VOLUME 94 fL (80-96); MONOCYTES % (AUTO) 15.4 % (2.0-12.0); NEUTROPHILS # (AUTO) 3.5 K/uL (1.8-8.9); NEUTROPHILS % (AUTO) 56.6 % (43.0-81.0); PLATELET COUNT (AUTO) 241 K/uL (150-450); RED BLOOD CELL COUNT(AUTO) 2.59 MIL/uL (4.5-6.0); WHITE BLOOD COUNT (AUTO) 6.2 K/uL (4.3-11.0)
[2025-03-27 18:15] LABS: CALCIUM, SERUM 6.7 mg/dL (8.5-10.1); CREATININE 4.7 mg/dL (0.6-1.3); POTASSIUM 4.6 mmol/L (3.5-5.1)
[2025-03-27 18:25] LABS: LYMPHOCYTES % (MANUAL) 22 % (16-48); MONOCYTES % (MANUAL) 15 % (0-11.0); NEUTROPHILS % (MANUAL) 59 (42-76)
[2025-03-27 18:26] LABS: EOSINOPHILS % (MANUAL) 4 % (0-4); PLATELET ESTIMATE ADEQUATE
[2025-03-28] VITALS: BP_SYST 125; BP_SYST 133; BP_DIAS 47; BP_DIAS 62; TEMP 97.5; TEMP 97.9; O2SAT 98; O2SAT 99
[2025-03-28] MEDS: MAG HYDROX/AL HYDROX/SIMETH 30 ML UDC PO PRN (03:13)
[2025-03-28 08:00] VITALS: BP 137/68; TEMP 98.1; O2SAT 98
[2025-03-28 08:57] LABS: CALCIUM, SERUM 6.9 mg/dL (8.5-10.1); CREATININE 4.9 mg/dL (0.6-1.3); MAGNESIUM 2.1 mg/dL (1.8-2.4); PHOSPHORUS 4.2 mg/dL (2.5-4.9); POTASSIUM 4.3 mmol/L (3.5-5.1)
[2025-03-28 08:59] LABS: BASOPHILS # (AUTO) 0.1 K/uL (0.0-0.2); BASOPHILS % (AUTO) 0.9 % (0.0-2.0); EOSINOPHILS # (AUTO) 0.3 K/uL (0.0-0.7); EOSINOPHILS % (AUTO) 4.4 % (0.0-6.0); HEMATOCRIT 29 % (39-51); HEMOGLOBIN 9.2 g/dL (13.5-17.5); LYMPHOCYTES # (AUTO) 1.4 K/uL (0.8-4.8); LYMPHOCYTES % (AUTO) 21.9 % (20.0-44.0); MEAN CORPUSCULAR HEMOGLOBIN 31 PG (26.0-33.0); MEAN CORPUSCULAR HGB CONC 32 g/dl (31.0-36.0); MEAN CORPUSCULAR VOLUME 97 fL (80-96); MONOCYTES # (AUTO) 0.9 K/uL (0.1-1.30); MONOCYTES % (AUTO) 13.9 % (2.0-12.0); NEUTROPHILS # (AUTO) 3.9 K/uL (1.8-8.9); NEUTROPHILS % (AUTO) 58.9 % (43.0-81.0); PLATELET COUNT (AUTO) 265 K/uL (150-450); RED BLOOD CELL COUNT(AUTO) 2.98 MIL/uL (4.5-6.0); RED CELL DISTRIBUTION WIDTH 22.1 % (11.5-15.0); WHITE BLOOD COUNT (AUTO) 6.6 K/uL (4.3-11.0)
[2025-03-28] MEDS ORDERED: IOHEXOL-300 100 ML VIAL IV ONE (11:26)
[2025-03-28] MEDS ORDERED: IV NS 0.9% 500 ML IV ONE (11:26)
[2025-03-28] MEDS ORDERED: CT SWABBABLE VALVE TRANS SET 1 EA INFUS.SET MC ONE (11:26)
[2025-03-28 16:00] VITALS: BP 124/62; TEMP 98.1; O2SAT 98
[2025-03-28] MEDS: DAPTOMYCIN 500 MG in IV NS 0.9% 50 ML IV SCH (17:49)
[2025-03-28] MEDS: MIRTAZAPINE 15 MG TABLET PO SCH (22:39)
[2025-03-29] VITALS: BP 125/47; TEMP 97.9; O2SAT 98
[2025-03-29 06:45] LABS: BASOPHILS % (AUTO) 0.7 % (0.0-2.0); EOSINOPHILS # (AUTO) 0.3 K/uL (0.0-0.7); EOSINOPHILS % (AUTO) 4.7 % (0.0-6.0); HEMATOCRIT 29 % (39-51); HEMOGLOBIN 9.3 g/dL (13.5-17.5); LYMPHOCYTES # (AUTO) 1.7 K/uL (0.8-4.8); MEAN CORPUSCULAR HEMOGLOBIN 32 PG (26.0-33.0); MEAN CORPUSCULAR HGB CONC 33 g/dl (31.0-36.0); MEAN CORPUSCULAR VOLUME 98 fL (80-96); MONOCYTES # (AUTO) 0.9 K/uL (0.1-1.30); MONOCYTES % (AUTO) 13.6 % (2.0-12.0); NEUTROPHILS # (AUTO) 3.7 K/uL (1.8-8.9); PLATELET COUNT (AUTO) 278 K/uL (150-450); RED BLOOD CELL COUNT(AUTO) 2.93 MIL/uL (4.5-6.0); RED CELL DISTRIBUTION WIDTH 22.3 % (11.5-15.0); WHITE BLOOD COUNT (AUTO) 6.7 K/uL (4.3-11.0)
[2025-03-29 07:23] LABS: CALCIUM, SERUM 7.2 mg/dL (8.5-10.1); CREATININE 5.2 mg/dL (0.6-1.3); MAGNESIUM 2.3 mg/dL (1.8-2.4); PHOSPHORUS 4.3 mg/dL (2.5-4.9); POTASSIUM 4.7 mmol/L (3.5-5.1)
[2025-03-29 08:00] VITALS: BP 132/72; TEMP 98.2; O2SAT 100
[2025-03-29 14:01] LABS: ALANINE AMINOTRANSFERASE < 6 U/L (12-78); ALKALINE PHOSPHATASE 276 U/L (46-116); ASPARTATE AMINOTRANSFERASE 34 U/L (15-37); BILIRUBIN,TOTAL 0.6 mg/dL (0.2-1.0); CALCIUM, SERUM 6.7 mg/dL (8.5-10.1); CARBON DIOXIDE 26 mmol/L (21-32); CHLORIDE 97 mmol/L (98-107); CREATININE 5.5 mg/dL (0.6-1.3); GLUCOSE 139 mg/dL (74-106); POTASSIUM 4.8 mmol/L (3.5-5.1); SODIUM SERUM 133 mmol/L (136-145); TOTAL PROTEIN, SERUM 6.4 g/dL (6.4-8.2); UREA NITROGEN, BLOOD 38 mg/dL (7-18)
[2025-03-29 14:13] LABS: BASOPHILS # (AUTO) 0.1 K/uL (0.0-0.2); BASOPHILS % (AUTO) 1.1 % (0.0-2.0); EOSINOPHILS # (AUTO) 0.3 K/uL (0.0-0.7); HEMATOCRIT 25 % (39-51); HEMOGLOBIN 8.3 g/dL (13.5-17.5); LYMPHOCYTES # (AUTO) 0.9 K/uL (0.8-4.8); LYMPHOCYTES % (AUTO) 15.9 % (20.0-44.0); MEAN CORPUSCULAR HEMOGLOBIN 32 PG (26.0-33.0); MEAN CORPUSCULAR HGB CONC 33 g/dl (31.0-36.0); MEAN CORPUSCULAR VOLUME 95 fL (80-96); MONOCYTES # (AUTO) 0.7 K/uL (0.1-1.30); MONOCYTES % (AUTO) 12.3 % (2.0-12.0); NEUTROPHILS # (AUTO) 3.8 K/uL (1.8-8.9); NEUTROPHILS % (AUTO) 65.7 % (43.0-81.0); PLATELET COUNT (AUTO) 261 K/uL (150-450); RED BLOOD CELL COUNT(AUTO) 2.62 MIL/uL (4.5-6.0); WHITE BLOOD COUNT (AUTO) 5.7 K/uL (4.3-11.0)
[2025-03-29 14:28] LABS: INR 1.24 (0.91-1.10); PROTHROMBIN TIME 12.7 SECS (9.2-11.1)
[2025-03-29 16:04] VITALS: BP 141/67; TEMP 98.2; O2SAT 100
[2025-03-29] MEDS ORDERED: CEFEPIME 1 GM in IV D5W 50 ML IV SCH (17:00)
[2025-03-29 18:38] LABS: BASOPHILS # (AUTO) 0.1 K/uL (0.0-0.2); BASOPHILS % (AUTO) 1.2 % (0.0-2.0); EOSINOPHILS # (AUTO) 0.3 K/uL (0.0-0.7); EOSINOPHILS % (AUTO) 3.1 % (0.0-6.0); HEMATOCRIT 29 % (39-51); HEMOGLOBIN 9.4 g/dL (13.5-17.5); LYMPHOCYTES % (AUTO) 11.5 % (20.0-44.0); MEAN CORPUSCULAR HEMOGLOBIN 31 PG (26.0-33.0); MEAN CORPUSCULAR HGB CONC 33 g/dl (31.0-36.0); MEAN CORPUSCULAR VOLUME 96 fL (80-96); MONOCYTES % (AUTO) 12.1 % (2.0-12.0); NEUTROPHILS % (AUTO) 72.1 % (43.0-81.0); PLATELET COUNT (AUTO) 254 K/uL (150-450); RED BLOOD CELL COUNT(AUTO) 2.99 MIL/uL (4.5-6.0); RED CELL DISTRIBUTION WIDTH 22.4 % (11.5-15.0); WHITE BLOOD COUNT (AUTO) 8.3 K/uL (4.3-11.0)
[2025-03-29] MEDS ORDERED: ALBUMIN 5% 500 ML IV ONE (19:27)
[2025-03-29] MEDS ORDERED: FENTANYL PF 100MCG/2ML AMPUL ONE (19:28)
[2025-03-29] MEDS ORDERED: LIDOCAINE 2% JEL UROJET 10 ML MM ONE (19:28)
[2025-03-29] MEDS ORDERED: MIDAZOLAM HCL 2 MG/2ML VIAL ONE (19:28)
[2025-03-29] MEDS ORDERED: FAMOTIDINE/PF INJ 20 MG/2 ML VIAL IV ONE (19:28)
[2025-03-29] MEDS ORDERED: KETAMINE HCL (500MG/10ML) 50 MG/ML VIAL ONE (19:28)
[2025-03-29 19:58] LABS: FREE PSA 71.33 ng/mL (0.00-45); PROSTATE SPECIFIC ANTIGEN SCR 403.55 ng/mL (0.00-4.00)
[2025-03-29] MEDS: CEFEPIME 1 GM in IV D5W 50 ML IV SCH (21:00)
[2025-03-29] MEDS ORDERED: ONDANSETRON HCL/PF 4 MG/2 ML VIAL IVP PRN (21:30)
[2025-03-29 23:00] VITALS: BP 141/81; O2SAT 100
[2025-03-29 23:30] VITALS: BP 143/77; O2SAT 100
[2025-03-29 23:45] VITALS: BP 141/81; O2SAT 100
[2025-03-30] VITALS (39 sets, daily range): BP systolic 93–159; BP diastolic 59–109; TEMP 97.5–98; O2SAT 93–100
[2025-03-30 10:18] LABS: BASOPHILS # (AUTO) 0.1 K/uL (0.0-0.2); BASOPHILS % (AUTO) 0.5 % (0.0-2.0); EOSINOPHILS # (AUTO) 0.1 K/uL (0.0-0.7); EOSINOPHILS % (AUTO) 0.9 % (0.0-6.0); HEMATOCRIT 35 % (39-51); HEMOGLOBIN 10.4 g/dL (13.5-17.5); LYMPHOCYTES % (AUTO) 8.3 % (20.0-44.0); MEAN CORPUSCULAR HEMOGLOBIN 29 PG (26.0-33.0); MEAN CORPUSCULAR HGB CONC 30 g/dl (31.0-36.0); MEAN CORPUSCULAR VOLUME 97 fL (80-96); MONOCYTES # (AUTO) 1.3 K/uL (0.1-1.30); MONOCYTES % (AUTO) 11.2 % (2.0-12.0); NEUTROPHILS # (AUTO) 9.6 K/uL (1.8-8.9); NEUTROPHILS % (AUTO) 79.1 % (43.0-81.0); PLATELET COUNT (AUTO) 204 K/uL (150-450); RED BLOOD CELL COUNT(AUTO) 3.57 MIL/uL (4.5-6.0); RED CELL DISTRIBUTION WIDTH 27.1 % (11.5-15.0); WHITE BLOOD COUNT (AUTO) 12.1 K/uL (4.3-11.0)
[2025-03-30 10:25] LABS: CALCIUM, SERUM 7.3 mg/dL (8.5-10.1); CARBON DIOXIDE 25 mmol/L (21-32); CHLORIDE 98 mmol/L (98-107); CREATININE 4.2 mg/dL (0.6-1.3); GLUCOSE 107 mg/dL (74-106); POTASSIUM 4.6 mmol/L (3.5-5.1); SODIUM SERUM 134 mmol/L (136-145); UREA NITROGEN, BLOOD 26 mg/dL (7-18)
[2025-03-30 10:31] LABS: ALANINE AMINOTRANSFERASE < 6 U/L (12-78); ALBUMIN 2.3 g/dL (3.4-5.0); ALKALINE PHOSPHATASE 345 U/L (46-116); ASPARTATE AMINOTRANSFERASE 33 U/L (15-37); BILIRUBIN,TOTAL 0.8 mg/dL (0.2-1.0); MAGNESIUM 2.3 mg/dL (1.8-2.4); TOTAL PROTEIN, SERUM 6.8 g/dL (6.4-8.2)
[2025-03-31] VITALS: BP 128/70; TEMP 97.9; O2SAT 96
[2025-03-31 04:00] VITALS: BP 132/66; TEMP 97.9; O2SAT 98
[2025-03-31 06:12] LABS: CARCINOEMBRYONIC ANTIGEN (CEA) 4.3 ng/mL (0.0-4.7); FOLIC ACID > 20.0 ng/mL (>3.0); FREE KAPPA LT CHAINS SERUM 193.5 mg/L (3.3-19.4); FREE LAMBDA LT CHAIN SERUM 243.2 mg/L (5.7-26.3); IMMUNOGLOBULIN A, SERUM 1047 mg/dL (61-437); IMMUNOGLOBULIN G, SERUM 1917 mg/dL (603-1613); IMMUNOGLOBULIN M, SERUM 55 mg/dL (15-143)
[2025-03-31 06:36] LABS: BASOPHILS # (AUTO) 0.1 K/uL (0.0-0.2); BASOPHILS % (AUTO) 0.9 % (0.0-2.0); EOSINOPHILS # (AUTO) 0.3 K/uL (0.0-0.7); HEMATOCRIT 28 % (39-51); HEMOGLOBIN 9.4 g/dL (13.5-17.5); LYMPHOCYTES # (AUTO) 0.8 K/uL (0.8-4.8); LYMPHOCYTES % (AUTO) 9.1 % (20.0-44.0); MEAN CORPUSCULAR HEMOGLOBIN 31 PG (26.0-33.0); MEAN CORPUSCULAR HGB CONC 34 g/dl (31.0-36.0); MEAN CORPUSCULAR VOLUME 91 fL (80-96); MONOCYTES # (AUTO) 0.9 K/uL (0.1-1.30); MONOCYTES % (AUTO) 10.7 % (2.0-12.0); NEUTROPHILS # (AUTO) 6.6 K/uL (1.8-8.9); NEUTROPHILS % (AUTO) 76.3 % (43.0-81.0); PLATELET COUNT (AUTO) 204 K/uL (150-450); RED BLOOD CELL COUNT(AUTO) 3.07 MIL/uL (4.5-6.0); WHITE BLOOD COUNT (AUTO) 8.7 K/uL (4.3-11.0)
[2025-03-31 07:59] LABS: CALCIUM, SERUM 7.4 mg/dL (8.5-10.1); CREATININE 4.9 mg/dL (0.6-1.3); MAGNESIUM 2.5 mg/dL (1.8-2.4); PHOSPHORUS 4.5 mg/dL (2.5-4.9); POTASSIUM 4.7 mmol/L (3.5-5.1)
[2025-03-31 08:00] VITALS: BP 133/72; TEMP 97.7; O2SAT 98
[2025-03-31 12:00] VITALS: BP 129/68; TEMP 97.4; O2SAT 98
[2025-03-31 16:00] VITALS: BP 135/67; TEMP 97.9; O2SAT 99
[2025-03-31 20:00] VITALS: BP 128/75; TEMP 97.3; O2SAT 99
[2025-04-01] VITALS: BP 127/69; TEMP 98.3; TEMP 98.4; O2SAT 97
[2025-04-01 04:00] VITALS: BP 126/67; TEMP 97.5; O2SAT 98
[2025-04-01 07:09] LABS: *SPE A/G RATIO 0.6 (0.7-1.7); *SPE ALBUMIN 2.6 g/dL (2.9-4.4); *SPE ALPHA-1-GLOBULIN 0.4 g/dL (0.0-0.4); *SPE ALPHA-2-GLOBULIN 0.8 g/dL (0.4-1.0); *SPE BETA GLOBULIN 0.9 g/dL (0.7-1.3); *SPE GLOBULIN, TOTAL 4.3 g/dL (2.2-3.9); *SPE M-SPIKE Not Observed g/dL (Not Observed); *SPE PROTEIN TOTAL 6.9 g/dL (6.0-8.5); *SPEGAMMA GLOBULIN 2.1 g/dL (0.4-1.8)
[2025-04-01 08:00] VITALS: BP 143/66; TEMP 98.1; O2SAT 96
[2025-04-01 08:13] LABS: CALCIUM, SERUM 7.8 mg/dL (8.5-10.1); CREATININE 4.2 mg/dL (0.6-1.3); MAGNESIUM 2.7 mg/dL (1.8-2.4); PHOSPHORUS 3.6 mg/dL (2.5-4.9)
[2025-04-01 10:16] LABS: BASOPHILS # (AUTO) 0.1 K/uL (0.0-0.2); BASOPHILS % (AUTO) 0.8 % (0.0-2.0); EOSINOPHILS # (AUTO) 0.2 K/uL (0.0-0.7); EOSINOPHILS % (AUTO) 2.1 % (0.0-6.0); HEMATOCRIT 30 % (39-51); HEMOGLOBIN 9.3 g/dL (13.5-17.5); LYMPHOCYTES # (AUTO) 0.8 K/uL (0.8-4.8); LYMPHOCYTES % (AUTO) 9.4 % (20.0-44.0); MEAN CORPUSCULAR HEMOGLOBIN 30 PG (26.0-33.0); MEAN CORPUSCULAR HGB CONC 31 g/dl (31.0-36.0); MEAN CORPUSCULAR VOLUME 99 fL (80-96); MONOCYTES # (AUTO) 0.9 K/uL (0.1-1.30); MONOCYTES % (AUTO) 11.4 % (2.0-12.0); NEUTROPHILS # (AUTO) 6.2 K/uL (1.8-8.9); NEUTROPHILS % (AUTO) 76.3 % (43.0-81.0); PLATELET COUNT (AUTO) 207 K/uL (150-450); RED BLOOD CELL COUNT(AUTO) 3.06 MIL/uL (4.5-6.0); RED CELL DISTRIBUTION WIDTH 26.6 % (11.5-15.0); WHITE BLOOD COUNT (AUTO) 8.1 K/uL (4.3-11.0)
[2025-04-01 12:00] VITALS: BP 126/76; TEMP 98.1; O2SAT 98
[2025-04-01 16:00] VITALS: BP 110/60; TEMP 98.1; O2SAT 96
[2025-04-01] MEDS ORDERED: IV NS 0.9% 250 ML IV ONE (16:58)
[2025-04-01] MEDS ORDERED: CT SWABBABLE VALVE TRANS SET 1 EA INFUS.SET MC ONE (16:58)
[2025-04-01] MEDS ORDERED: IOHEXOL-300 100 ML VIAL IV ONE (16:58)
[2025-04-01 20:00] VITALS: BP 98/55; TEMP 97.9; O2SAT 96
[2025-04-02] VITALS: BP 127/56; TEMP 98.8; O2SAT 95
[2025-04-02 04:00] VITALS: BP 119/58; TEMP 98.6; O2SAT 99
[2025-04-02 08:00] VITALS: BP 122/60; TEMP 99.3; O2SAT 97
[2025-04-02 08:38] LABS: CALCIUM, SERUM 7.9 mg/dL (8.5-10.1); CREATININE 3.4 mg/dL (0.6-1.3); PHOSPHORUS 2.7 mg/dL (2.5-4.9)
[2025-04-02 10:28] LABS: BASOPHILS % (AUTO) 0.6 % (0.0-2.0); EOSINOPHILS # (AUTO) 0.1 K/uL (0.0-0.7); EOSINOPHILS % (AUTO) 1.7 % (0.0-6.0); HEMATOCRIT 24 % (39-51); HEMOGLOBIN 8.1 g/dL (13.5-17.5); LYMPHOCYTES # (AUTO) 0.8 K/uL (0.8-4.8); LYMPHOCYTES % (AUTO) 10.9 % (20.0-44.0); MEAN CORPUSCULAR HEMOGLOBIN 31 PG (26.0-33.0); MEAN CORPUSCULAR HGB CONC 33 g/dl (31.0-36.0); MEAN CORPUSCULAR VOLUME 92 fL (80-96); MONOCYTES # (AUTO) 0.9 K/uL (0.1-1.30); MONOCYTES % (AUTO) 11.5 % (2.0-12.0); NEUTROPHILS # (AUTO) 5.6 K/uL (1.8-8.9); NEUTROPHILS % (AUTO) 75.3 % (43.0-81.0); PLATELET COUNT (AUTO) 210 K/uL (150-450); RED BLOOD CELL COUNT(AUTO) 2.64 MIL/uL (4.5-6.0); RED CELL DISTRIBUTION WIDTH 25.3 % (11.5-15.0); WHITE BLOOD COUNT (AUTO) 7.4 K/uL (4.3-11.0)
[2025-04-02 12:00] VITALS: BP 111/57; TEMP 97.2; O2SAT 97
[2025-04-02 13:04] VITALS: BP 111/57
[2025-04-04 01:07] LABS: AFP, TUMOR MARKER <1.8 ng/mL (0.0-8.4); CARBOHYDRATE AG 19-9 49 U/mL (0-35)
== END 2025-04-02 14:53 | DRG 662 ==
LOC: ER 23:44 → TELE1 02-25 02:43 → TELE-TD 02-25 03:27 → TELE1 02-28 09:26 → MEDSG1 03-04 13:31 → TELE1 03-17 20:59 → MEDSG1 03-22 13:49 → ICU 03-29 22:41 → TELE1 03-30 16:02
PROVIDERS: ADMIT Nurse Practitioner Acute Care; ATTEND Nurse Practitioner Family
PROC: 05HM33Z Insertion of Infusion Device into Right Internal Jugular Vein, Percutaneous Approach (ICD-10-PCS; principal; 2025-02-25)
PROC: B543ZZA Ultrasonography of Right Jugular Veins, Guidance (ICD-10-PCS; 2025-02-25)
PROC: 5A1D70Z Performance of Urinary Filtration, Intermittent, Less than 6 Hours Per Day (ICD-10-PCS; 2025-02-25)
PROC: 0TBB8ZZ Excision of Bladder, Via Natural or Artificial Opening Endoscopic (ICD-10-PCS; 2025-02-26)
PROC: 30233N1 Transfusion of Nonautologous Red Blood Cells into Peripheral Vein, Percutaneous Approach (ICD-10-PCS; 2025-02-28)
PROC: 0J2SXYZ Change Other Device in Head and Neck Subcutaneous Tissue and Fascia, External Approach (ICD-10-PCS; 2025-03-06)
PROC: B246ZZ4 Ultrasonography of Right and Left Heart, Transesophageal (ICD-10-PCS; 2025-03-15)
PROC: 0TB03ZX Excision of Right Kidney, Percutaneous Approach, Diagnostic (ICD-10-PCS; 2025-03-16)
PROC: 06HY33Z Insertion of Infusion Device into Lower Vein, Percutaneous Approach (ICD-10-PCS; 2025-03-18)
PROC: 0JH63XZ Insertion of Tunneled Vascular Access Device into Chest Subcutaneous Tissue and Fascia, Percutaneous Approach (ICD-10-PCS; 2025-03-22)
PROC: 05HM33Z Insertion of Infusion Device into Right Internal Jugular Vein, Percutaneous Approach (ICD-10-PCS; 2025-03-22)
PROC: B513YZA Fluoroscopy of Right Jugular Veins using Other Contrast, Guidance (ICD-10-PCS; 2025-03-22)
PROC: 0W3R8ZZ Control Bleeding in Genitourinary Tract, Via Natural or Artificial Opening Endoscopic (ICD-10-PCS; 2025-03-29)
PROC: 02HV33Z Insertion of Infusion Device into Superior Vena Cava, Percutaneous Approach (ICD-10-PCS; 2025-04-02)
PROC: B548ZZA Ultrasonography of Superior Vena Cava, Guidance (ICD-10-PCS; 2025-04-02)
DX: T83.83XA Hemorrhage due to genitourinary prosthetic devices, implants and grafts, initial encounter (principal); A41.01 Sepsis due to Methicillin susceptible Staphylococcus aureus; E43 Unspecified severe protein-calorie malnutrition; I50.31 Acute diastolic (congestive) heart failure; K68.2 Retroperitoneal fibrosis; N17.0 Acute kidney failure with tubular necrosis; I50.33 Acute on chronic diastolic (congestive) heart failure; N18.6 End stage renal disease; C78.7 Secondary malignant neoplasm of liver and intrahepatic bile duct; C79.51 Secondary malignant neoplasm of bone; C77.9 Secondary and unspecified malignant neoplasm of lymph node, unspecified; N13.6 Pyonephrosis; E87.21 Acute metabolic acidosis; I13.2 Hypertensive heart and chronic kidney disease with heart failure and with stage 5 chronic kidney disease, or end stage renal disease; M87.9 Osteonecrosis, unspecified; N13.8 Other obstructive and reflux uropathy; I82.C21 Chronic embolism and thrombosis of right internal jugular vein; E87.1 Hypo-osmolality and hyponatremia; D62 Acute posthemorrhagic anemia; C78.02 Secondary malignant neoplasm of left lung; C78.01 Secondary malignant neoplasm of right lung; C61 Malignant neoplasm of prostate; C67.9 Malignant neoplasm of bladder, unspecified; D63.8 Anemia in other chronic diseases classified elsewhere; R31.9 Hematuria, unspecified; N13.9 Obstructive and reflux uropathy, unspecified; N05.9 Unspecified nephritic syndrome with unspecified morphologic changes; Z79.890 Hormone replacement therapy; Z79.899 Other long term (current) drug therapy; B96.5 Pseudomonas (aeruginosa) (mallei) (pseudomallei) as the cause of diseases classified elsewhere; E11.22 Type 2 diabetes mellitus with diabetic chronic kidney disease; E11.40 Type 2 diabetes mellitus with diabetic neuropathy, unspecified; E11.51 Type 2 diabetes mellitus with diabetic peripheral angiopathy without gangrene; E78.5 Hyperlipidemia, unspecified; N40.1 Benign prostatic hyperplasia with lower urinary tract symptoms; Q63.8 Other specified congenital malformations of kidney; Z86.718 Personal history of other venous thrombosis and embolism; K21.9 Gastro-esophageal reflux disease without esophagitis; Z99.2 Dependence on renal dialysis; E03.9 Hypothyroidism, unspecified; E83.42 Hypomagnesemia; E87.5 Hyperkalemia; E87.6 Hypokalemia; M89.8X9 Other specified disorders of bone, unspecified site; I08.0 Rheumatic disorders of both mitral and aortic valves; I27.20 Pulmonary hypertension, unspecified; N05.8 Unspecified nephritic syndrome with other morphologic changes; Z92.21 Personal history of antineoplastic chemotherapy; D63.1 Anemia in chronic kidney disease; Y84.6 Urinary catheterization as the cause of abnormal reaction of the patient, or of later complication, without mention of misadventure at the time of the procedure; Y92.129 Unspecified place in nursing home as the place of occurrence of the external cause
CPT/HCPCS: 36415; 36569; 71045-TC; 71260-TC; 76770-TC; 80048-TC; 80053-TC; 80076-TC; 80202-TC; 81001; 82105; 82378; 82550-TC; 82570-TC; 82607-TC; 82728-TC; 82784; 82962-TC; 83540-TC; 83735-TC; 83880; 83970; 84100-TC; 84132-TC; 84153-TC; 84154-TC; 84155; 84165; 84300-TC; 84443-TC; 84484-TC; 85025-TC; 85027-TC; 85610-TC; 85652-TC; 85730-TC; 86225; 86235; 86301; 86334; 86706; 86803; 86850-TC; 87040-TC; 87081-TC; 87086-TC; 87186-TC; 87340; 87806; 90935-TC; 93307-TC; 93312-TC; 93970-TC; 93971-TC; 97110-TC; 97530-TC; A4216; A4217; A4223; A6213; A6403; C1750; C1751; G0378; J0690; J0692; J0713; J0878; J0885; J1308; J1644; J1815; J1938; J2250; J2270; J2405; J2704; J2916; J3010; J3370; J3475; J3490; J7030; J7040; J7042; J7050; J7060; P9016; P9045; P9047; Q9967